=== PATIENT | female | born 1945 | race African-American/Black ===

== ENCOUNTER 2020-09-04 17:28 | Observation (INO) | payer MEDICARE, OTHER ==
[2020-09-04] MEDS ORDERED: NORMAL SALINE 1000 ML 1,000 ML IV ONE (18:35)
[2020-09-04] MEDS ORDERED: MORPHINE SULFATE 10 MG/ML INJ IV ONE (18:35)
[2020-09-04] MEDS ORDERED: ONDANSETRON HCL INJ/PF 4 MG/2 ML SDV IV ONE (18:35)
--- NOTE | 2020-09-04 18:42 | ER Document Report ---
ED Medical Screen (RME) - General Chief Complaint: Chest Pain Stated Complaint: CHEST PAIN Time Seen by Provider: 09/04/20 18:30 Primary Care Provider: ROXANA VELEZ MD [Primary Care Provider] - Follow up as needed - [facility] Notes: 09/04/20 18:39 74-year-old female presents to ED for evaluation of epigastric pain for the last several days. Notes pain worse with movement. States radiates through the back. Notes that she feels constipated. States serval days since last bowel movement. Concerned it may be Flexeril that she is taking for her shoulder. Patient notes that she does have history of hypertension. Denies shortness of breath or recent sick contacts. Patient has ready had a cholecystectomy. Physical Exam - Vital signs Vitals: Temp Pulse Resp BP Pulse Ox 98.2 F 95 20 149/87 H 95 09/04/20 17:49 09/04/20 17:49 09/04/20 17:49 09/04/20 17:49 09/04/20 17:49 General: No acute distress. Alert and oriented x3. Uncomfortable appearing. Skin: Intact without any jaundice, pallor, or erythema. Warm and dry. Heart: Regular rate and rhythm. S1,S2. No murmurs, rubs, or gallops. Lungs: Clear to ausculation bilaterally. No wheezes, rhonchi, rales. Equal chest expansion. No retractions. Abdomen: Soft, tender to epigastric region with rebound, nondistended. No hepatosplenomegaly. No masses. No CVA tenderness bilaterally. Neuro: GCS 15. Moving all extremities without discomfort. Psych: Mood and affect appropriate. Course - Vital Signs Vital signs: Temp Pulse Resp BP Pulse Ox 98.2 F 95 20 149/87 H 95 09/04/20 17:49 09/04/20 17:49 09/04/20 17:49 09/04/20 17:49 09/04/20 17:49 Doctor's Discharge - Discharge Referrals: ROXANA VELEZ MD [Primary Care Provider] - Follow up as needed
[2020-09-04 18:54] LABS: ABSOLUTE BASOPHILS # (AUTO) 0.1 10^3/uL (0.0-0.2); ABSOLUTE EOSINOPHILS # (AUTO) 0.2 10^3/uL (0.0-0.6); ABSOLUTE LYMPHOCYTES (AUTO) 1.7 10^3/uL (0.5-4.7); ABSOLUTE NEUT (AUTO) 5.6 10^3/uL (1.7-8.2); BASOPHILS % (AUTO) 0.6 % (0-2); EOSINOPHILS % (AUTO) 2.2 % (0-6); HEMATOCRIT 37.6 % (36.0-47.0); HEMOGLOBIN 12.6 g/dL (12.0-15.5); LYMPHOCYTES % (AUTO) 20.2 % (13-45); MEAN CORPUSCULAR HEMOGLOBIN 27.7 pg (27.0-33.4); MEAN CORPUSCULAR HGB CONC 33.5 g/dL (32.0-36.0); MEAN CORPUSCULAR VOLUME 83 fl (80-97); MONOCYTES % (AUTO) 11.4 % (3-13); PLATELET COUNT 348 10^3/uL (150-450); RED BLOOD COUNT 4.55 10^6/uL (3.72-5.28); RED CELL DISTRIBUTION WIDTH 14.1 % (11.5-14.0); SEGMENTED NEUTROPHILS % (AUTO) 65.6 % (42-78); TOTAL CELLS COUNTED % (AUTO) 100 %; WHITE BLOOD COUNT 8.6 10^3/uL (4.0-10.5)
--- NOTE | 2020-09-04 19:02 | RADIOLOGY REPORT (SQ) ---
EXAM DESCRIPTION: CHEST SINGLE VIEW IMAGES COMPLETED DATE/TIME: 09/04/2020 3:49 pm REASON FOR STUDY: chest pain COMPARISON: None. EXAM PARAMETERS: NUMBER OF VIEWS: One view. TECHNIQUE: Single frontal radiographic view of the chest acquired. RADIATION DOSE: NA LIMITATIONS: Lungs are hypoinflated. FINDINGS: LUNGS AND PLEURA: Mild hyperinflation. Some mild streaky opacities at the left lung base which may represent atelectasis. Possible left basilar pulmonary nodule measuring 9 mm. There is so me elevation of the right hemidiaphragm. No pleural effusion or pneumothorax. MEDIASTINUM AND HILAR STRUCTURES: No masses. Contour normal. HEART AND VASCULAR STRUCTURES: Heart normal in size. Normal vasculature. BONES: No acute findings. HARDWARE: None in the chest. OTHER: Some gas-filled bowel in the upper abdomen could represent dilated small bowel. IMPRESSION: 1. Lungs are mildly hypoinflated with probable minimal basilar atelectasis. Possible p ulmonary nodule at the left lung base. This can be evaluated with CT. 2. Some gas-filled bowel in the upper abdomen may reflect dilated small bowel. Patient is scheduled for CT abdomen pelvis. TECHNICAL DOCUMENTATION: JOB ID: [id number] 2010 [employer]- All Rights Reserved Reading location - IP/workstation name: [email or web address]
[2020-09-04 19:12] LABS: ALBUMIN 4.3 g/dL (3.5-5.0); ALKALINE PHOSPHATASE 85 U/L (38-126); ANION GAP 11 (5-19); ASPARTATE AMINO TRANSFERASE 18 U/L (14-36); BILIRUBIN,DIRECT 0.3 mg/dL (0.0-0.4); BILIRUBIN,TOTAL 0.6 mg/dL (0.2-1.3); BLOOD UREA NITROGEN 15 mg/dL (7-20); CALCIUM 9.6 mg/dL (8.4-10.2); CARBON DIOXIDE 31 mmol/L (22-30); CHLORIDE 96 mmol/L (98-107); CREATINE KINASE 82 U/L (30-135); GLUCOSE 116 mg/dL (75-110); INTERNATIONAL RATION (INR) 1.01; POTASSIUM 3.5 mmol/L (3.6-5.0); PROTHROMBIN TIME 13.5 SEC (11.4-15.4); TOTAL PROTEIN 7.4 g/dL (6.3-8.2)
[2020-09-04 19:27] LABS: CREATINE KINASE MB 0.66 ng/mL (<4.55); TROPONIN I < 0.012 ng/mL
--- NOTE | 2020-09-04 20:23 | RADIOLOGY REPORT (SQ) ---
EXAM DESCRIPTION: CT ABDOMEN PELVIS WITH IV CONTRAST COMPLETED DATE/TME: 09/04/2020 19:44 CLINICAL HISTORY: 74 years, Female, epigastric pain COMPARISON: None. TECHNIQUE: Axial images with 97 mL of Omnipaque 300. Sagittal coronal reconstruction. Images stored on PACS. All CT scanners at this facility use dose modulation, iterative reconstruction, and/or weight based dosing when appropriate to reduce radiation dose to as low as reasonably achievable (ALARA). FINDINGS: Borderline heart size. Mild dilatation of the distal esophagus. Tiny atelectasis right lower lobe. Elevation of the right hemidiaphragm. Liver, spleen, pancreas, adrenal glands, aorta and para-aortic regions are unremarkable. Mild narrowing at the origin of the celiac artery not felt to be hemodynamically significant. Kidneys without acute findings. 5 mm nonobstructing stone upper pole left kidney. Multilevel degenerative changes in the mid and lower lumbar spine. Cholecystectomy. No evidence for biliary dilatation. Moderate to prominent distention of the stomach and duodenum and majority of the small bowel. Distal small bowel not dilated. Consistent with small bowel obstruction. Nondilated colon. Normal appendix. CT of the pelvis demonstrates advanced sigmoid diverticulosis without acute diverticulitis. Urinary bladder contracted. Absent uterus. Adnexa not enlarged. No adenopathy or free fluid. IMPRESSION: 1. High-grade distal small bowel obstruction. 2. Normal appendix. Nondilated colon. Advanced sigmoid diverticulosis without obvious acute diverticulitis. 3. Multilevel degenerative changes in the lumbar spine. 4. Previous cholecystectomy and hysterectomy.
--- NOTE | 2020-09-04 21:53 | EKG REPORT ---
SEVERITY:- ABNORMAL ECG - SINUS RHYTHM LEFT VENTRICULAR HYPERTROPHY PROBABLE INFERIOR INFARCT, AGE INDETERMINATE : Confirmed by: Marya Jimenez MD 04-Sep-2020 21:52:21
--- NOTE | 2020-09-05 01:41 | ER Document Report ---
ED General - General Chief Complaint: Epigastric Pain Stated Complaint: CHEST PAIN Time Seen by Provider: 09/04/20 18:30 Notes: Patient is a 74-year-old female with a history of hypertension, who presents emergency department with chest pain and not having a bowel movement for about 8 days. Patient reports that she has been vomiting brown vomitus. States that about 3 days ago, she went to urgent care where she was given a suppository, whi ch only helped her have a very small bowel movement. Prior to that, 5 days prior she had her last bowel movement. - Related Data Allergies/Adverse Reactions: latex Allergy (Verified 09/04/20 18:41) harinder Allergy (Verified 09/05/20 16:02) Sulfa (Sulfonamide Antibiotics) Allergy (Verified 09/04/20 18:41) Penicillins Adverse Reaction (Verified 09/04/20 18:41) Past Medical History - General Information source: Patient - Social History Smoking Status: Never Smoker Chew tobacco use (# tins/day): No Frequency of alcohol use: Occasional Drug Abuse: None Family History: Reviewed & Not Pertinent - Past Medical History Cardiac Medical History: Reports: Hx Hypertension Past Surgical History: Reports: Hx Cholecystectomy, Hx Hysterectomy, Hx Orthopedic Surgery - bilateral knee replacement Review of Systems - Review of Systems Notes: REVIEW OF SYSTEMS: CONSTITUTIONAL : Denies recent illness. Denies recent unintentional weight loss. Denies fever, chills, or sweats. EENT: Denies eye, ear, throat, or mouth pain, discharge, or symptoms. Denies nasal or sinus congestion. CARDIOVASCULAR: See HPI. RESPIRATORY: Denies shortness of breath, cough, congestion, difficulty breathing, or wheezing. GASTROINTESTINAL: See HPI. GENITOURINARY: Denies difficulty urinating, burning, blood in urine, urgency or frequency. MUSCULOSKELETAL: Denies neck and back pain. Denies joint pain or swelling. SKIN: Denies rash, itchiness, or lesions HEMATOLOGIC : Denies easy bruising or bleeding. LYMPHATIC: Denies swollen, painful, enlarged glands. NEUROLOGICAL: Denies no numbness or tingling denies weakness. Denies headache. Denies altered mental status. Denies alteration in speech. PSYCHIATRIC: Denies stress, anxiety, alteration in sleep patterns, or depression. All other systems reviewed and negative. Physical Exam - Vital signs Vitals: Temp Pulse Resp BP Pulse Ox 98.2 F 95 20 149/87 H 95 09/04/20 17:49 09/04/20 17:49 09/04/20 17:49 09/04/20 17:49 09/04/20 17:49 - Notes Notes: PHYSICAL EXAMINATION: GENERAL: Appears well, healthy, well-nourished, no acute distress. HEAD: Normocephalic, atraumatic. EYES: PERRL, conjunctiva normal, all extraocular movements intact, sclera nonicteric ENT: Moist mucous membranes. NECK: Supple, no noticeable swelling, redness, rash. Normal range of motion. LUNGS: Equal breath sounds bilaterally and clear to auscultation. No wheezes rales or rhonchi. CARDIOVASCULAR: S1-S2, regular rate, regular rhythm. Radial pulses 2+, normal. ABDOMEN: Normoactive bowel sounds. Soft, tender generalized abdomen. EXTREMITIES: Normal strength and range of motion, no pitting or edema. No cyanosis. NEUROLOGICAL: Moves all extremities upon command. Strength 5/5 in all extremities. PSYCH: Normal mood, normal affect. SKIN: Warm, dry. No rash, lesions, ulcerations noted. Normal skin turgor. Course - Re-evaluation Re-evalutation: 09/05/20 01:57 Hematology is unremarkable. Coagulation studies are also unremarkable. Potassium was 3.5 and creatinine is 1.54. I have no other labs for comparison. Troponin is negative x2. Lipase is normal. LFTs are also normal. CT of the abdomen pelvis with IV contrast ordered in triage shows stomach and duodenal distention. Patient also has a high-grade distal small bowel obstruction. Appendix is normal. No signs of diverticulitis, but the patient does have some diverticulosis. Patient also has a 5 mm nonobstructing renal stone in the left pole of the kidney. Attempted to call Dr. Paredes, the surgicalist reconciliation clerk for consultation. 09/05/20 02:40 I was able to speak with Dr. Paredes. NG tube will be placed. 09/05/20 02:[address] Gtz, the hopitalist. Patient will be admitted under the hospitalist service. - Vital Signs Vital signs: Temp Pulse Resp BP Pulse Ox 97.8 F 82 19 146/92 H 100 09/06/20 08:28 09/06/20 08:28 09/06/20 08:28 09/06/20 08:28 09/06/20 08:28 - Laboratory Results Result Diagrams: 09/06/20 05:26 09/06/20 05:26 Laboratory Results Interpreted: 09/04/20 09/04/20 18:45 18:45 RDW 14.1 H Potassium 3.5 L Chloride 96 L Carbon Dioxide 31 H Creatinine 1.54 H Est GFR ( Amer) 40 L Est GFR (MDRD) Non-Af 33 L Glucose 116 H Critical Laboratory Results Reviewed: No Critical Results - Radiology Results Critical Radiology Results Reviewed: No Critical Results Discharge - Discharge Clinical Impression: Bowel obstruction Qualifiers: Intestinal obstruction type: unspecified Intestinal obstruction extent: unspecified extent Qualified Code(s): K56.609 - Unspecified intestinal ob struction, unspecified as to partial versus complete obstruction Abdominal pain Qualifiers: Abdominal location: unspecified location Qualified Code(s): R10.9 - Unspecified abdominal pain Disposition: ADMITTED INPATIENT Admitting Provider: [facility] Unit Admitted: Medical Floor
[2020-09-05] MEDS ORDERED: ONDANSETRON HCL INJ/PF 4 MG/2 ML SDV IV ONE (01:45)
[2020-09-05] MEDS ORDERED: MORPHINE SULFATE 10 MG/ML INJ IV ONE (02:00)
--- NOTE | 2020-09-05 02:59 | PDOC CONSULTATION ---
Consultation Consult Date: 09/05/20 Attending physician:: CINDY NESS Provider Consulted: KHUSHBU MARTI Consult reason:: sbo History of Present Illness Admission Date/PCP: ROXANA VELEZ MD History of Present Illness: WILIAM SANDY is a 74 year old female with a history of hypertension, who presents emergency department with chest pain and not having a bowel movement for about 8 days. Patient reports that she has been vomiting brown vomitus. States that about 3 days ago, she went to urgent care where she was given a suppository, which only helped her have a very small bowel movement. Prior to that, 5 days prior she had her last bowel movement. Past Medical History Cardiac Medical History: Reports: Hypertension Past Surgical History Past Surgical History: Reports: Cholecystectomy, Hysterectomy, Orthopedic Surgery - bilateral knee replacement Social History Smoking Status: Never Smoker Electronic Cigarette use?: No Family History Parental Family History Reviewed: No Children Family History Reviewed: NA Sibling(s) Family History Reviewed.: NA Medication/Allergy Allergies/Adverse Reactions: latex Allergy (Verified 09/04/20 18:41) Sulfa (Sulfonamide Antibiotics) Allergy (Verified 09/04/20 18:41) Penicillins Adverse Reaction (Verified 09/04/20 18:41) Review of Systems Constitutional: PRESENT: fatigue, weakness Eyes: ABSENT: as per HPI, visual disturbances, other Ears: ABSENT: as per HPI, hearing changes, other Nose, Mouth, and Throat: ABSENT: as per HPI, headache(s), mouth pain, sore throat, vertigo, other Breasts: ABSENT: as per HPI, other Cardiovascular: ABSENT: as per HPI, chest pain, dyspnea on exertion, edema, orthropnea, palpitations, other Respiratory: ABSENT: as per HPI, cough, dyspnea, hemoptysis, sputum, other Gastrointestinal: PRESENT: bloating, constipation, nausea, vomiting Genitourinary: ABSENT: as per HPI, difficulty urinating, dysuria, hematuria, nocturia, other Musculoskeletal: ABSENT: as per HPI, back pain, deformity, joint swelling, muscle weakness, other Integumentary: ABSENT: as per HPI, diaphoresis, erythema, lesions, pruritus, rash, wounds, other Neurological: ABSENT: as per HPI, abnormal gait, abnormal movements, abnormal speech, confusion, convulsions, dizziness, focal weakness, frequent falls, lack of coordination, memory loss, numbness, paresthesias, restless legs, syncope, tingling, tremor(s), vertigo, weakness, other Psychiatric: ABSENT: as per HPI, anxiety, depression, hallucinations, homidical ideation, suicidal ideation, other Endocrine: ABSENT: as per HPI, cold intolerance, flushing, heat intolerance, menstrual abnormalities, polydipsia, polyphagia, polyuria, other Hematologic/Lymphatic: ABSENT: as per HPI, easy bleeding, easy bruising, lymphadenopathy, other Allergic/Immunologic: ABSENT: as per HPI, seasonal rhinorrhea, other Physical Exam Vital Signs: Temp Pulse Resp BP Pulse Ox 98.8 F 111 H 15 132/84 H 96 09/05/20 02:13 09/04/20 22:58 09/05/20 02:13 09/05/20 02:13 09/05/20 02:13 Intake & Output 09/03/20 09/04/20 09/05/20 06:59 06:59 06:59 Weight 95.9 kg General appearance: PRESENT: mild distress Head exam: PRESENT: normocephalic Eye exam: PRESENT: EOMI Ear exam: PRESENT: normal external ear exam Mouth exam: PRESENT: moist Teeth exam: PRESENT: poor dentation Neck exam: PRESENT: full ROM Respiratory exam: PRESENT: clear to auscultation marlen Cardiovascular exam: PRESENT: RRR Pulses: PRESENT: normal radial pulses, normal femoral pulses Breast: PRESENT: Normal GI/Abdominal exam: PRESENT: diminished bowel sounds, distended Rectal exam: PRESENT: deferred Extremities exam: PRESENT: full ROM Musculoskeletal exam: PRESENT: full ROM Neurological exam: PRESENT: alert, awake, oriented to person, oriented to place Psychiatric exam: PRESENT: appropriate affect Skin exam: PRESENT: dry Results Laboratory Results: 09/04/20 18:45 09/04/20 18:45 09/04/20 09/04/20 18:45 18:45 WBC 8.6 RBC 4.55 Hgb 12.6 Hct 37.6 MCV 83 MCH 27.7 MCHC 33.5 RDW 14.1 H Plt Count 348 Seg Neutrophils % 65.6 Sodium 137.9 Potassium 3.5 L Chloride 96 L Carbon Dioxide 31 H Anion Gap 11 BUN 15 Creatinine 1.54 H Est GFR ( Amer) 40 L Glucose 116 H Calcium 9.6 Total Bilirubin 0.6 AST 18 Alkaline Phosphatase 85 Total Protein 7.4 Albumin 4.3 Lipase 85.7 09/04/20 09/04/20 09/04/20 18:45 18:45 22:57 Creatine Kinase 82 CK-MB (CK-2) 0.66 Troponin I < 0.012 < 0.012 Impressions: Abdomen/Pelvis CT 09/04/20 18:35 IMPRESSION: 1. High-grade distal small bowel obstruction. 2. Normal appendix. Nondilated colon. Advanced sigmoid diverticulosis without obvious acute diverticulitis. 3. Multilevel degenerative changes in the lumbar spine. 4. Previous cholecystectomy and hysterectomy. Chest X-Ray 09/04/20 18:37 IMPRESSION: 1. Lungs are mildly hypoinflated with probable minimal basilar atelectasis. Possible pulmonary nodule at the left lung base. This can be evaluated with CT. 2. Some gas-filled bowel in the upper abdomen may reflect dilated small bowel. Patient is scheduled for CT abdomen pelvis. Assessment & Plan - Diagnosis (1) Bowel obstruction Qualifiers: Intestinal obstruction type: unspecified Intestinal obstruction extent: unspecified extent Qualified Code(s): K56.609 - Unspecified intestinal obstruction, unspecified as to partial versus complete obstruction Is this a current diagnosis for this admission?: Yes - Plan Summary Plan Summary: impression 74y/o presents iwth c/o constipation, vomiting abdominal distension ct concerening for sbo plan ng suction iv hydration. observation surgery will follow
[2020-09-05] MEDS ORDERED: DEXTROSE 50%-WATER 25 GM/50 ML DISP.SYRIN IV PRN ×2 (03:42)
[2020-09-05] MEDS ORDERED: DEXTROSE 40% GEL 15 GM TUBE PO PRN ×2 (03:42)
[2020-09-05] MEDS ORDERED: GLUCAGON,HUMAN RECOMB 1 MG INJ SUBCUT PRN (03:42)
[2020-09-05] MEDS: ONDANSETRON HCL INJ/PF 4 MG/2 ML SDV IV PRN (04:04)
--- NOTE | 2020-09-05 04:15 | PDOC H&P ---
History of Present Illness Admission Date/PCP: 09/05/20 02:58 ROXANA VELEZ MD Patient complains of: Abdominal pain History of Present Illness: WILIAM SANDY is a 74 year old female with a history of hypertension presents to the ED reporting that she has not been able to have a bowel movement including both gas and stool for the past 8 days. This is associated with a cramping generalized cramping abdominal pain with associated nausea and nonbloody vomiting of ingested matter. She had visited urgent care clinic 4 days back and was given enema after which she was able to pass scanty amount of stool 1 time but continues to have failure to pass gas and since then. She has a remote history of cholecystectomy and hysterectomy but denies any recent abdominal surgery. She has no fever, chills, cough, palpitation, dizziness. On presentation to the ED patient had reported associated typical chest pain and she had 2 sets of cardiac enzymes which were negative and EKG obtained showed no significant ST-T wave changes. She has been evaluated by surgical team at the ED and NG tube has already been inserted. Patient is now being admitted to medical service for continued management of possible small bowel obstruction. Past Medical History Cardiac Medical History: Reports: Hypertension Past Surgical History Past Surgical History: Reports: Cholecystectomy, Hysterectomy, Orthopedic Surgery - bilateral knee replacement Social History Information Source: Patient Lives with: Family Smoking Status: Never Smoker Electronic Cigarette use?: No Frequency of Alcohol Use: Occasional Hx Recreational Drug Use: No Drugs: None - Advance Directive Resuscitation Status: Full Code Family History Family History: Reviewed & Not Pertinent Parental Family History Reviewed: Yes Children Family History Reviewed: Yes Sibling(s) Family History Reviewed.: Yes Medication/Allergy Home Medications: Doxazosin Mesylate [Cardura 4 mg Tablet] 4 mg PO DAILY 09/05/20 Furosemide [Lasix 40 mg Tablet] 40 mg PO DAILY 09/05/20 Metoprolol Succinate [Toprol Xl 50 mg Tab.sr] 50 mg PO BID 09/05/20 Potassium Chloride [Klor-Con 8] 8 meq PO DAILY 09/05/20 Allergies/Adverse Reactions: latex Allergy (Verified 09/04/20 18:41) Sulfa (Sulfonamide Antibiotics) Allergy (Verified 09/04/20 18:41) Penicillins Adverse Reaction (Verified 09/04/20 18:41) Review of Systems Constitutional: ABSENT: chills, fever(s), headache(s), weight gain, weight loss Eyes: ABSENT: visual disturbances Ears: ABSENT: hearing changes Nose, Mouth, and Throat: ABSENT: mouth pain, sore throat Cardiovascular: ABSENT: dyspnea on exertion, edema, orthropnea, palpitations Respiratory: ABSENT: cough, hemoptysis Gastrointestinal: PRESENT: as per HPI Genitourinary: ABSENT: dysuria, hematuria Musculoskeletal: ABSENT: joint swelling Integumentary: ABSENT: rash, wounds Neurological: ABSENT: abnormal gait, abnormal speech, confusion, dizziness, focal weakness, syncope Psychiatric: ABSENT: anxiety, depression, homidical ideation, suicidal ideation Endocrine: ABSENT: cold intolerance, heat intolerance, polydipsia, polyuria Hematologic/Lymphatic: ABSENT: easy bleeding, easy bruising Physical Exam Vital Signs: Temp Pulse Resp BP Pulse Ox 98.8 F 111 H 15 132/84 H 96 09/05/20 02:13 09/04/20 22:58 09/05/20 02:13 09/05/20 02:13 09/05/20 02:13 Intake & Output 09/03/20 09/04/20 09/05/20 06:59 06:59 06:59 Intake Total 1000 Output Total 450 Balance 550 Weight 95.9 kg Additional comments: GENERAL APPEARANCE: Alert and oriented x3, in no acute distress HEENT: Normocephalic and atraumatic. No scleral icterus. Moist oral mucosa NECK: Supple. No lymphadenopathy or tenderness. No carotid bruit. No JVD CHEST: Symmetric. Nontender to palpation. LUNGS: Clear with good air entry bilaterally. No wheezing or crackles HEART: Regular rate and rhythm with normal S1 and S2. No murmurs, gallops, or rubs. ABDOMEN: soft, active bowel sounds, mild tenderness to palpation on the left lower quadrant area but no rebound, guarding or rigidity. No organomegaly detected. EXTREMITIES: No cyanosis, clubbing, or edema. MUSCULOSKELETAL: No deformity, atrophy or swelling noted PSYCHIATRIC: Recent and remote memory is intact. Appropriate mood and affect. SKIN: Warm, dry, and well perfused. No lesions or rashes are noted. NEUROLOGIC: No focal sensory or motor deficits are noted. Results Laboratory Results: 09/04/20 18:45 09/04/20 18:45 09/04/20 09/04/20 18:45 18:45 WBC 8.6 RBC 4.55 Hgb 12.6 Hct 37.6 MCV 83 MCH 27.7 MCHC 33.5 RDW 14.1 H Plt Count 348 Seg Neutrophils % 65.6 Sodium 137.9 Potassium 3.5 L Chloride 96 L Carbon Dioxide 31 H Anion Gap 11 BUN 15 Creatinine 1.54 H Est GFR ( Amer) 40 L Glucose 116 H Calcium 9.6 Total Bilirubin 0.6 AST 18 Alkaline Phosphatase 85 Total Protein 7.4 Albumin 4.3 Lipase 85.7 09/04/20 09/04/20 09/04/20 18:45 18:45 22:57 Creatine Kinase 82 CK-MB (CK-2) 0.66 Troponin I < 0.012 < 0.012 Impressions: Abdomen/Pelvis CT 09/04/20 18:35 IMPRESSION: 1. High-grade distal small bowel obstruction. 2. Normal appendix. Nondilated colon. Advanced sigmoid diverticulosis without obvious acute diverticulitis. 3. Multilevel degenerative changes in the lumbar spine. 4. Previous cholecystectomy and hysterectomy. Chest X-Ray 09/04/20 18:37 IMPRESSION: 1. Lungs are mildly hypoinflated with probable minimal basilar atelectasis. Possible pulmonary nodule at the left lung base. This can be evaluated with CT. 2. Some gas-filled bowel in the upper abdomen may reflect dilated small bowel. Patient is scheduled for CT abdomen pelvis. Assessment and Plan - Diagnosis (1) Small bowel obstruction Is this a current diagnosis for this admission?: Yes Plan: Presents with a few days duration of failure to have a bowel movement CT abdomen: High-grade distal small bowel obstruction and sigmoid diverticulosis with no sign of diverticulitis Has no signs of peritonitis NG tube has been inserted Patient will be kept n.p.o. Continue IV hydration Surgery on board and recommendations appreciated (2) Acute kidney injury Is this a current diagnosis for this admission?: Yes Plan: BUN/creatinine on this encounter was 15.54 Has no baseline to compare it with, could be CKD Currently patient is being hydrated Monitor kidney indicis Avoid nephrotoxic's and renally dose medications (3) Hypokalemia Is this a current diagnosis for this admission?: Yes Plan: Potassium was borderline low at 3.5 Likely due to GI loss from vomiting Replete with potassium chloride IV Continue monitoring electrolytes closely and replete as necessary (4) Sigmoid diverticulosis Is this a current diagnosis for this admission?: Yes Plan: CT abdomen showed sigmoid diverticulosis without sign of diverticulitis Recommend high-fiber diet once small bowel obstruction resolves (5) Hypertension Is this a current diagnosis for this admission?: Yes Plan: Blood pressure is within acceptable range at this point Hold antihypertensive for now due to patient being n.p.o. Closely monitor vital signs (6) Obesity (BMI 30-39.9) Is this a current diagnosis for this admission?: Yes Plan: Encourage lifestyle modification including exercise and dietary habits change - Time Time Spent with patient: 35 or more minutes Total Critical Time (Minutes): 45 Medications reviewed and adjusted accordingly: Yes Anticipated Discharge Disposition: Home, Self Care Anticipated Discharge Timeframe: within 72 hours - Inpatient Certification Based on my medical assessment, after consideration of the patient's comorbidities, presenting symptoms, or acuity I expect that the services needed warrant INPATIENT care.: Yes I certify that my determination is in accordance with my understanding of Medicare's requirements for reasonable and necessary INPATIENT services [42 CFR 412.3e].: Yes Medical Necessity: Significant Comorbidiites Make Outpatient Treatment Too Risky, Need Close Monitoring Due to Risk of Patient Decompensation, Need For IV Fluids, Need for Pain Control, Risk of Complication if Not Cared For in Hospital Post Hospital Care: D/C or Transfer Summary
--- NOTE | 2020-09-05 04:17 | RADIOLOGY REPORT (SQ) ---
Abdomen x-ray single view on 09/05/2020 3:27 AM CLINICAL INDICATION: NG tube placement COMPARISON: CT from 09/04/2020 FINDINGS: NG tube extends into the body of the stomach in good position. There are dilated loops of small bowel in the midabdomen consistent with known small bowel obstruction. Degenerative changes are noted in the spine. IMPRESSION: NG tube in good position in the stomach.
[2020-09-05] MEDS: HEPARIN SOD (PORCINE) 5,000 UNIT/ML 1 ML VIAL SUBCUT SCH ×3 (06:39→21:45)
--- NOTE | 2020-09-05 08:56 | PDOC PROGRESS REPORT ---
Subjective Date:: 09/05/20 Subjective:: 74 year old female with a history of hypertension, who presents emergency depar tment with chest pain and not having a bowel movement for about 8 days. Patient reports that she has been vomiting brown vomitus. States that about 3 days ago, she went to urgent care where she was given a suppository, which only helped her have a very small bowel movement. Prior to that, 5 days prior she had her last bowel movement. 09/05/[id number]-sdmy-old female with history of hypertension, history of cholecystectomy, hysterectomy admitted with nausea and vomitings and vomiting brown-colored vomitus. Surgical consult was done during the hospital stay recommendation is IV fluids, NG tube, pain management. KUB done this morning indicated of bowel obstruction and NG tube in the stomach. Reason For Visit: SMALL BOWEL OBSTRUCTION,ACUTE KIDNEY INJURY Physical Exam Vital Signs: Temp Pulse Resp BP Pulse Ox 98.8 F 111 H 17 117/76 97 09/05/20 02:13 09/04/20 22:58 09/05/20 08:01 09/05/20 08:01 09/05/20 03:01 Intake & Output 09/04/20 09/05/20 09/06/20 06:59 06:59 06:59 Intake Total 1000 Output Total 450 Balance 550 Weight 95.9 kg General appearance: PRESENT: no acute distress, cooperative Head exam: PRESENT: atraumatic Eye exam: PRESENT: PERRLA Mouth exam: PRESENT: moist, tongue midline Teeth exam: PRESENT: poor dentation Neck exam: ABSENT: carotid bruit, JVD, lymphadenopathy, thyromegaly Respiratory exam: PRESENT: decreased breath sounds Cardiovascular exam: PRESENT: RRR. ABSENT: diastolic murmur, rubs, systolic murmur GI/Abdominal exam: PRESENT: normal bowel sounds, soft. ABSENT: distended, guarding, mass, organolmegaly, rebound, tenderness Rectal exam: PRESENT: deferred Extremities exam: PRESENT: full ROM. ABSENT: calf tenderness, clubbing, pedal edema Neurological exam: PRESENT: alert, awake, oriented to person, oriented to place, oriented to time, oriented to situation, CN II-XII grossly intact. ABSENT: motor sensory deficit Psychiatric exam: PRESENT: appropriate affect, normal mood. ABSENT: homicidal ideation, suicidal ideation Results Laboratory Results: 09/04/20 18:45 09/04/20 18:45 09/04/20 09/04/20 18:45 18:45 WBC 8.6 RBC 4.55 Hgb 12.6 Hct 37.6 MCV 83 MCH 27.7 MCHC 33.5 RDW 14.1 H Plt Count 348 Seg Neutrophils % 65.6 Sodium 137.9 Potassium 3.5 L Chloride 96 L Carbon Dioxide 31 H Anion Gap 11 BUN 15 Creatinine 1.54 H Est GFR ( Amer) 40 L Glucose 116 H Calcium 9.6 Total Bilirubin 0.6 AST 18 Alkaline Phosphatase 85 Total Protein 7.4 Albumin 4.3 Lipase 85.7 09/04/20 09/04/20 09/04/20 18:45 18:45 22:57 Creatine Kinase 82 CK-MB (CK-2) 0.66 Troponin I < 0.012 < 0.012 Impressions: Abdomen/Pelvis CT 09/04/20 18:35 IMPRESSION: 1. High-grade distal small bowel obstruction. 2. Normal appendix. Nondilated colon. Advanced sigmoid diverticulosis without obvious acute diverticulitis. 3. Multilevel degenerative changes in the lumbar spine. 4. Previous cholecystectomy and hysterectomy. Chest X-Ray 09/04/20 18:37 IMPRESSION: 1. Lungs are mildly hypoinflated with probable minimal basilar atelectasis. Possible pulmonary nodule at the left lung base. This can be evaluated with CT. 2. Some gas-filled bowel in the upper abdomen may reflect dilated small bowel. Patient is scheduled for CT abdomen pelvis. KUB X-Ray 09/05/20 03:18 IMPRESSION: NG tube in good position in the stomach. Assessment and Plan - Diagnosis (1) Bowel obstruction Qualifiers: Intestinal obstruction type: unspecified Intestinal obstruction extent: unspecified extent Qualified Code(s): K56.609 - Unspecified intestinal obstruction, unspecified as to partial versus complete obstruction Is this a current diagnosis for this admission?: Yes Plan: 09/05/2020-patient admitted for small bowel obstruction. Presently n.p.o., with NG tube, on IV fluids. Denies any pain. Surgical consult was requested. Plan to do the daily KUBs. To provide pain management. Patient has history of cholecystectomy and hysterectomy before. (2) Acute kidney injury Is this a current diagnosis for this admission?: Yes Plan: 09/05/2020-serum creatinine is 1.54. We do not have any baseline creatinine. Patient possibly came in with DARYL secondary to nausea and vomitings. To repeat the labs today. (3) Obesity (BMI 30-39.9) Is this a current diagnosis for this admission?: No Plan: 09/05/2020-patient BMI is more than 38 diet exercise weight loss lifestyle modifications discussed with the patient. (4) Hypokalemia Is this a current diagnosis for this admission?: Yes Plan: 09/05/2020-came in with a low potassium, serum potassium today 3.5. To give IV potassium supplementations. (5) Hypertension Is this a current diagnosis for this admission?: No Plan: 09/05/2020-patient has history of chronic essential hypertension blood pressure today is 112/48. Stable. Plan is to closely monitor blood pressures at this time. - Time Anticipated Discharge Disposition: Home, Self Care Anticipated Discharge Timeframe: within 72 hours
--- NOTE | 2020-09-05 09:21 | RADIOLOGY REPORT (SQ) ---
EXAM DESCRIPTION: ABDOMEN 2 VIEWS IMAGES COMPLETED DATE/TIME: 09/05/2020 9:05 am REASON FOR STUDY: f/u sbo D50.8 OTHER IRON DEFICIENCY ANEMIAS R19.4 CHANGE IN BOWEL HABIT COMPARISON: Earlier the same day. NUMBER OF VIEWS: Two views. TECHNIQUE: Supine and erect/decubitus radiographic images of the abdomen acquired. LIMITATIONS: None. FINDINGS: Unchanged position of nasogastric tube. Unchanged mildly dilated loops of small bowel wit h gas fluid levels. No free air. Gas within none dilated descending colon. Contrast in the urinary bladder. IMPRESSION: Ileus or partial small bowel obstruction. No significant change. TECHNICAL DOCUMENTATION: JOB ID: [id number] 2010 [employer]- All Rights Reserved Reading location - IP/workstation name: [email or web address]
[2020-09-05] MEDS ORDERED: POTASSI CL 20 MEQ/50 ML RIDER 20 MEQ/50 ML RTUPB IV ONE (09:45)
[2020-09-05 09:48] LABS: ABSOLUTE EOSINOPHILS # (AUTO) 0.1 10^3/uL (0.0-0.6); ABSOLUTE MONOCYTES (AUTO) 1.2 10^3/uL (0.1-1.4); ABSOLUTE NEUT (AUTO) 6.6 10^3/uL (1.7-8.2); BASOPHILS % (AUTO) 0.4 % (0-2); HEMATOCRIT 33.8 % (36.0-47.0); HEMOGLOBIN 11.4 g/dL (12.0-15.5); LYMPHOCYTES % (AUTO) 19.8 % (13-45); MEAN CORPUSCULAR HEMOGLOBIN 27.9 pg (27.0-33.4); MEAN CORPUSCULAR HGB CONC 33.8 g/dL (32.0-36.0); MEAN CORPUSCULAR VOLUME 83 fl (80-97); MONOCYTES % (AUTO) 12.2 % (3-13); PLATELET COUNT 304 10^3/uL (150-450); RED BLOOD COUNT 4.09 10^6/uL (3.72-5.28); RED CELL DISTRIBUTION WIDTH 14.2 % (11.5-14.0); SEGMENTED NEUTROPHILS % (AUTO) 66.6 % (42-78); TOTAL CELLS COUNTED % (AUTO) 100 %; WHITE BLOOD COUNT 9.9 10^3/uL (4.0-10.5)
[2020-09-05 10:06] LABS: ALBUMIN 3.9 g/dL (3.5-5.0); ALKALINE PHOSPHATASE 72 U/L (38-126); ANION GAP 13 (5-19); ASPARTATE AMINO TRANSFERASE 17 U/L (14-36); BILIRUBIN,DIRECT 0.3 mg/dL (0.0-0.4); BILIRUBIN,TOTAL 0.6 mg/dL (0.2-1.3); BLOOD UREA NITROGEN 17 mg/dL (7-20); CALCIUM 9.3 mg/dL (8.4-10.2); CARBON DIOXIDE 24 mmol/L (22-30); CHLORIDE 100 mmol/L (98-107); GLUCOSE 95 mg/dL (75-110); POTASSIUM 3.5 mmol/L (3.6-5.0); TOTAL PROTEIN 6.8 g/dL (6.3-8.2)
[2020-09-05] MEDS: FAMOTIDINE INJ/PF 20 MG/2 ML SDV IV SCH ×2 (10:18→21:46)
[2020-09-05] MEDS: RINGERS SOLUTION,LACTATED 1,000 ML IV PRN ×2 (10:18→22:41)
--- NOTE | 2020-09-05 12:16 | PDOC PROGRESS REPORT ---
Subjective Date:: 09/05/20 Subjective:: Had a small bowel movement just now and feels better although she still feels bl oated. Abdominal pain has improved. Reason For Visit: SMALL BOWEL OBSTRUCTION,ACUTE KIDNEY INJURY Physical Exam Vital Signs: Temp Pulse Resp BP Pulse Ox 98.2 F 91 16 127/67 H 100 09/05/20 11:39 09/05/20 11:39 09/05/20 11:39 09/05/20 11:39 09/05/20 11:39 Intake & Output 09/04/20 09/05/20 09/06/20 06:59 06:59 06:59 Intake Total 1000 Output Total 450 Balance 550 Weight 95.9 kg General appearance: PRESENT: no acute distress, cooperative Respiratory exam: PRESENT: clear to auscultation marlen Cardiovascular exam: PRESENT: RRR GI/Abdominal exam: PRESENT: other - Soft, mildly distended, nontender to palpation Results Laboratory Results: 09/05/20 09:36 09/05/20 09:36 09/04/20 09/04/20 09/05/20 18:45 18:45 09:36 WBC 8.6 9.9 RBC 4.55 4.09 Hgb 12.6 11.4 L Hct 37.6 33.8 L MCV 83 83 MCH 27.7 27.9 MCHC 33.5 33.8 RDW 14.1 H 14.2 H Plt Count 348 304 Seg Neutrophils % 65.6 66.6 Sodium 137.9 Potassium 3.5 L Chloride 96 L Carbon Dioxide 31 H Anion Gap 11 BUN 15 Creatinine 1.54 H Est GFR ( Amer) 40 L Glucose 116 H Calcium 9.6 Magnesium Total Bilirubin 0.6 AST 18 Alkaline Phosphatase 85 Total Protein 7.4 Albumin 4.3 Lipase 85.7 09/05/20 09:36 WBC RBC Hgb Hct MCV MCH MCHC RDW Plt Count Seg Neutrophils % Sodium 137.3 Potassium 3.5 L Chloride 100 Carbon Dioxide 24 Anion Gap 13 BUN 17 Creatinine 1.37 H Est GFR ( Amer) 46 L Glucose 95 Calcium 9.3 Magnesium 2.0 Total Bilirubin 0.6 AST 17 Alkaline Phosphatase 72 Total Protein 6.8 Albumin 3.9 Lipase 09/04/20 09/04/20 09/04/20 18:45 18:45 22:57 Creatine Kinase 82 CK-MB (CK-2) 0.66 Troponin I < 0.012 < 0.012 Impressions: Abdomen/Pelvis CT 09/04/20 18:35 IMPRESSION: 1. High-grade distal small bowel obstruction. 2. Normal appendix. Nondilated colon. Advanced sigmoid diverticulosis without obvious acute diverticulitis. 3. Multilevel degenerative changes in the lumbar spine. 4. Previous cholecystectomy and hysterectomy. Chest X-Ray 09/04/20 18:37 IMPRESSION: 1. Lungs are mildly hypoinflated with probable minimal basilar atelectasis. Possible pulmonary nodule at the left lung base. This can be evaluated with CT. 2. Some gas-filled bowel in the upper abdomen may reflect dilated small bowel. Patient is scheduled for CT abdomen pelvis. Abdomen X-Ray 09/05/20 00:00 IMPRESSION: Ileus or partial small bowel obstruction. No significant change. KUB X-Ray 09/05/20 03:18 IMPRESSION: NG tube in good position in the stomach. Assessment & Plan - Diagnosis (1) Bowel obstruction Qualifiers: Intestinal obstruction type: unspecified Intestinal obstruction extent: unspecified extent Qualified Code(s): K56.609 - Unspecified intestinal obstruction, unspecified as to partial versus complete obstruction Is this a current diagnosis for this admission?: Yes Plan: May be improving as evidenced by her bowel movement today. But still has abdominal distention. I do see air in the colon on her abdominal x-rays today. In light of the improvements, and no alarming signs for bowel compromise, will continue conservative management. Repeat x-rays in the morning. - Time Anticipated Discharge Disposition: Home, Self Care Anticipated Discharge Timeframe: within 72 hours
[2020-09-05 21:08] LABS: APPEARANCE,URINE CLOUDY; BILIRUBIN,URINE NEGATIVE (NEGATIVE); GLUCOSE, URINE NEGATIVE (NEGATIVE); KETONES,URINE 20 mg/dL (NEGATIVE); LEUKOCYTE ESTERASE,URINE LARGE (NEGATIVE); NITRITE,URINE NEGATIVE (NEGATIVE); PROTEIN,URINE 30 mg/dL (NEGATIVE); URINE SPECIFIC GRAVITY 1.043; UROBILINOGEN,URINE NEGATIVE mg/dL (<2.0)
[2020-09-05 21:10] LABS: COLOR,URINE YELLOW
[2020-09-05] MEDS: METOPROLOL SUCCINATE 50 MG TAB.SR.24H PO SCH (21:46)
[2020-09-06] MEDS: HEPARIN SOD (PORCINE) 5,000 UNIT/ML 1 ML VIAL SUBCUT SCH ×3 (05:13→22:14)
[2020-09-06 06:09] LABS: ABSOLUTE EOSINOPHILS # (AUTO) 0.2 10^3/uL (0.0-0.6); ABSOLUTE LYMPHOCYTES (AUTO) 1.8 10^3/uL (0.5-4.7); ABSOLUTE MONOCYTES (AUTO) 0.9 10^3/uL (0.1-1.4); ABSOLUTE NEUT (AUTO) 4.1 10^3/uL (1.7-8.2); BASOPHILS % (AUTO) 0.4 % (0-2); EOSINOPHILS % (AUTO) 2.4 % (0-6); HEMATOCRIT 29.2 % (36.0-47.0); LYMPHOCYTES % (AUTO) 25.5 % (13-45); MEAN CORPUSCULAR HEMOGLOBIN 28.3 pg (27.0-33.4); MEAN CORPUSCULAR HGB CONC 34.3 g/dL (32.0-36.0); MEAN CORPUSCULAR VOLUME 82 fl (80-97); MONOCYTES % (AUTO) 13.3 % (3-13); PLATELET COUNT 282 10^3/uL (150-450); RED BLOOD COUNT 3.54 10^6/uL (3.72-5.28); RED CELL DISTRIBUTION WIDTH 13.8 % (11.5-14.0); SEGMENTED NEUTROPHILS % (AUTO) 58.4 % (42-78); TOTAL CELLS COUNTED % (AUTO) 100 %
[2020-09-06 06:28] LABS: BLOOD UREA NITROGEN 12 mg/dL (7-20); CALCIUM 8.5 mg/dL (8.4-10.2); CARBON DIOXIDE 26 mmol/L (22-30); GLUCOSE 82 mg/dL (75-110); POTASSIUM 3.6 mmol/L (3.6-5.0)
[2020-09-06 06:42] LABS: ANION GAP 7 (5-19); CHLORIDE 102 mmol/L (98-107)
[2020-09-06] MEDS: FAMOTIDINE INJ/PF 20 MG/2 ML SDV IV SCH ×2 (09:52→22:14)
[2020-09-06] MEDS: METOPROLOL SUCCINATE 50 MG TAB.SR.24H PO SCH ×2 (09:53→22:14)
[2020-09-06] MEDS: DOXAZOSIN MESYLATE 4 MG TABLET PO SCH (09:53)
--- NOTE | 2020-09-06 10:43 | PDOC PROGRESS REPORT ---
Subjective Date:: 09/06/20 Subjective:: 74 year old female with a history of hypertension, who presents emergency depar tment with chest pain and not having a bowel movement for about 8 days. Patient reports that she has been vomiting brown vomitus. States that about 3 days ago, she went to urgent care where she was given a suppository, which only helped her have a very small bowel movement. Prior to that, 5 days prior she had her last bowel movement. 09/05/[id number]-tehz-old female with history of hypertension, history of cholecystectomy, hysterectomy admitted with nausea and vomitings and vomiting brown-colored vomitus. Surgical consult was done during the hospital stay recommendation is IV fluids, NG tube, pain management. KUB done this morning indicated of bowel obstruction and NG tube in the stomach. 09/06/[id number]-qmcg-old female admitted for small bowel obstruction. Still has NG tube in place. Follow-up KUB was done my impression is obstruction is still persisting. Waiting for the surgical team input. Reason For Visit: SMALL BOWEL OBSTRUCTION,ACUTE KIDNEY INJURY Physical Exam Vital Signs: Temp Pulse Resp BP Pulse Ox 97.8 F 82 19 146/92 H 100 09/06/20 08:28 09/06/20 08:28 09/06/20 08:28 09/06/20 08:28 09/06/20 08:28 Intake & Output 09/05/20 09/06/20 09/07/20 06:59 06:59 06:59 Intake Total 1000 1310 Output Total 450 500 Balance 550 810 Weight 95.9 kg 96.9 kg 96.9 kg General appearance: PRESENT: no acute distress, cooperative, well-developed Head exam: PRESENT: atraumatic Eye exam: PRESENT: PERRLA Ear exam: PRESENT: normal external ear exam Mouth exam: PRESENT: neck supple Teeth exam: PRESENT: poor dentation Neck exam: ABSENT: carotid bruit, JVD, lymphadenopathy, thyromegaly Respiratory exam: PRESENT: decreased breath sounds Cardiovascular exam: PRESENT: RRR. ABSENT: diastolic murmur, rubs, systolic murmur GI/Abdominal exam: PRESENT: normal bowel sounds, soft. ABSENT: distended, guard ing, mass, organolmegaly, rebound, tenderness Rectal exam: PRESENT: deferred Extremities exam: PRESENT: full ROM. ABSENT: calf tenderness, clubbing, pedal edema Neurological exam: PRESENT: alert, awake, oriented to person, oriented to place, oriented to time, oriented to situation, CN II-XII grossly intact. ABSENT: motor sensory deficit Psychiatric exam: PRESENT: appropriate affect, normal mood. ABSENT: homicidal ideation, suicidal ideation Results Laboratory Results: 09/06/20 05:26 09/06/20 05:26 09/05/20 09/05/20 09/06/20 09:36 20:30 05:26 WBC 9.9 7.0 RBC 4.09 3.54 L Hgb 11.4 L 10.0 L Hct 33.8 L 29.2 L MCV 83 82 MCH 27.9 28.3 MCHC 33.8 34.3 RDW 14.2 H 13.8 Plt Count 304 282 Seg Neutrophils % 66.6 58.4 Sodium Potassium Chloride Carbon Dioxide Anion Gap BUN Creatinine Est GFR ( Amer) Glucose Calcium Urine Color YELLOW Urine Appearance CLOUDY Urine pH 5.0 Ur Specific [place] 1.043 Urine Protein 30 H Urine Glucose (UA) NEGATIVE Urine Ketones 20 H Urine Blood SMALL H Urine Nitrite NEGATIVE Ur Leukocyte Esterase LARGE H Urine WBC (Auto) 5 Urine RBC (Auto) 2 09/06/20 05:26 WBC RBC Hgb Hct MCV MCH MCHC RDW Plt Count Seg Neutrophils % Sodium 135.4 L Potassium 3.6 Chloride 102 Carbon Dioxide 26 Anion Gap 7 BUN 12 Creatinine 1.12 Est GFR ( Amer) 58 L Glucose 82 Calcium 8.5 Urine Color Urine Appearance Urine pH Ur Specific [place] Urine Protein Urine Glucose (UA) Urine Ketones Urine Blood Urine Nitrite Ur Leukocyte Esterase Urine WBC (Auto) Urine RBC (Auto) 09/04/20 09/04/20 09/04/20 18:45 18:45 22:57 Creatine Kinase 82 CK-MB (CK-2) 0.66 Troponin I < 0.012 < 0.012 Impressions: Abdomen/Pelvis CT 09/04/20 18:35 IMPRESSION: 1. High-grade distal small bowel obstruction. 2. Normal appendix. Nondilated colon. Advanced sigmoid diverticulosis without obvious acute diverticulitis. 3. Multilevel degenerative changes in the lumbar spine. 4. Previous cholecystectomy and hysterectomy. Chest X-Ray 09/04/20 18:37 IMPRESSION: 1. Lungs are mildly hypoinflated with probable minimal basilar atelectasis. Possible pulmonary nodule at the left lung base. This can be evaluated with CT. 2. Some gas-filled bowel in the upper abdomen may reflect dilated small bowel. Patient is scheduled for CT abdomen pelvis. KUB X-Ray 09/05/20 03:18 IMPRESSION: NG tube in good position in the stomach. Assessment and Plan - Diagnosis (1) Bowel obstruction Qualifiers: Intestinal obstruction type: unspecified Intestinal obstruction extent: unspecified extent Qualified Code(s): K56.609 - Unspecified intestinal obstruction, unspecified as to partial versus complete obstruction Is this a current diagnosis for this admission?: Yes Plan: May be improving as evidenced by her bowel movement today. But still has abdominal distention. I do see air in the colon on her abdominal x-rays today. In light of the improvements, and no alarming signs for bowel compromise, will continue conservative management. Repeat x-rays in the morning. 09/06/2020-patient is comfortably in the bed communicating well. NG tube in place. On examination belly is soft nontender. Bowel sounds are present. Waiting for the surgical team recommendations. (2) Acute kidney injury Is this a current diagnosis for this admission?: Yes Plan: BUN/creatinine on this encounter was 15/1.54 Has no baseline to compare it with, could be CKD Currently patient is being hydrated Monitor kidney indicis Avoid nephrotoxic's and renally dose medications 09/06/2020-serum creatinine today is 1.12. Acute kidney injury is resolving. (3) Obesity (BMI 30-39.9) Is this a current diagnosis for this admission?: Yes (4) Hypokalemia Is this a current diagnosis for this admission?: Yes (5) Hypertension Is this a current diagnosis for this admission?: Yes Plan: Blood pressure is within acceptable range at this point Hold antihypertensive for now due to patient being n.p.o. Closely monitor vital signs 09/06/2020-blood pressure is 153/80. Stable. Plan is to closely monitor the vital signs. - Time Anticipated Discharge Disposition: Home, Self Care Anticipated Discharge Timeframe: within 24 hours
[2020-09-06] MEDS ORDERED: RINGERS SOLUTION,LACTATED 1,000 ML IV PRN (11:21)
--- NOTE | 2020-09-06 12:20 | RADIOLOGY REPORT (SQ) ---
EXAM DESCRIPTION: ABDOMEN 2 VIEWS IMAGES COMPLETED DATE/TIME: 09/06/2020 5:51 am REASON FOR STUDY: Follow-up partial small bowel obstruction D50.8 OTHER IRON DEFICIENCY ANEMIAS COMPARISON: 09/05/2020 NUMBER OF VIEWS: Two views. TECHNIQUE: Supine and erect/decubitus radiographic images of the abdomen acquired. LIMITATIONS: None. FINDINGS: FREE AIR: None. No abnormal gas collections. LUNG BASES: Clear. BOWEL GAS PATTERN: Diffuse gaseous distention of multiple dilated small bowel loops throughout the ab domen with relative paucity of bowel gas distally in the colon. Small amount of gas is demonstrated in the left colon and rectum. Degree of dilatation in the small bowel is slightly more pronounced fr om exam 1 day prior. Few air-fluid levels. CALCIFICATIONS: No suspicious calcifications. SOFT TISSUES: No gross mass or suggestion of organomegaly. HARDWARE: Nasogastric tube tip in side port projects over the stomach. BONES: No acute fracture. No worrisome bone lesions. OTHER: No other significant finding. IMPRESSION: Gas-filled dilated small bowel loops throughout the abdomen with probable slight increas e in dilatation from 1 day prior. TECHNICAL DOCUMENTATION: JOB ID: [id number] [employer]- All Rights Reserved Reading location - IP/workstation name: [email or web address]
--- NOTE | 2020-09-06 12:57 | PDOC PROGRESS REPORT ---
Subjective Date:: 09/06/20 Reason For Visit: SMALL BOWEL OBSTRUCTION,ACUTE KIDNEY INJURY Patient states no flatus, but does feel better. Acute abdominal series shows multiple dilated loops of small bowel on today's film, with some gas in the proximal transverse colon. Physical Exam Vital Signs: Temp Pulse Resp BP Pulse Ox 97.8 F 82 19 146/92 H 100 09/06/20 08:28 09/06/20 08:28 09/06/20 08:28 09/06/20 08:28 09/06/20 08:28 Intake & Output 09/05/20 09/06/20 09/07/20 06:59 06:59 06:59 Intake Total 1000 1310 Output Total 450 500 Balance 550 810 Weight 95.9 kg 96.9 kg 96.9 kg General appearance: PRESENT: no acute distress GI/Abdominal exam: PRESENT: other - Patient examined in the bed and then in the chair. Abdomen is semifirm, without peritoneal signs. Neurological exam: PRESENT: oriented to person, oriented to place, oriented to time, oriented to situation Results Laboratory Results: 09/06/20 05:26 09/06/20 05:26 09/05/20 09/06/20 09/06/20 20:30 05:26 05:26 WBC 7.0 RBC 3.54 L Hgb 10.0 L Hct 29.2 L MCV 82 MCH 28.3 MCHC 34.3 RDW 13.8 Plt Count 282 Seg Neutrophils % 58.4 Sodium 135.4 L Potassium 3.6 Chloride 102 Carbon Dioxide 26 Anion Gap 7 BUN 12 Creatinine 1.12 Est GFR ( Amer) 58 L Glucose 82 Calcium 8.5 Urine Color YELLOW Urine Appearance CLOUDY Urine pH 5.0 Ur Specific [place] 1.043 Urine Protein 30 H Urine Glucose (UA) NEGATIVE Urine Ketones 20 H Urine Blood SMALL H Urine Nitrite NEGATIVE Ur Leukocyte Esterase LARGE H Urine WBC (Auto) 5 Urine RBC (Auto) 2 09/04/20 09/04/20 09/04/20 18:45 18:45 22:57 Creatine Kinase 82 CK-MB (CK-2) 0.66 Troponin I < 0.012 < 0.012 Impressions: Abdomen/Pelvis CT 09/04/20 18:35 IMPRESSION: 1. High-grade distal small bowel obstruction. 2. Normal appendix. Nondilated colon. Advanced sigmoid diverticulosis without obvious acute diverticulitis. 3. Multilevel degenerative changes in the lumbar spine. 4. Previous cholecystectomy and hysterectomy. Chest X-Ray 09/04/20 18:37 IMPRESSION: 1. Lungs are mildly hypoinflated with probable minimal basilar atelectasis. Possible pulmonary nodule at the left lung base. This can be evaluated with CT. 2. Some gas-filled bowel in the upper abdomen may reflect dilated small bowel. Patient is scheduled for CT abdomen pelvis. KUB X-Ray 09/05/20 03:18 IMPRESSION: NG tube in good position in the stomach. Abdomen X-Ray 09/06/20 07:00 IMPRESSION: Gas-filled dilated small bowel loops throughout the abdomen with probable slight increase in dilatation from 1 day prior. Assessment & Plan - Diagnosis (1) Bowel obstruction Qualifiers: Intestinal obstruction type: unspecified Intestinal obstruction extent: unspecified extent Qualified Code(s): K56.609 - Unspecified intestinal obstruction, unspecified as to partial versus complete obstruction Is this a current diagnosis for this admission?: Yes Plan: Impression: Small bowel obstruction not resolved. No evidence of peritonitis. Recommendations: 1. We will obtain small bowel follow-through, placing contrast through nasogastric tube. 2. We will continue to follow closely with you. 3. Discussed above with hospitalist service. - Time Anticipated Discharge Disposition: Home, Self Care Anticipated Discharge Timeframe: within 24 hours
[2020-09-06] MEDS: RINGERS SOLUTION,LACTATED 1,000 ML IV PRN (19:00)
[2020-09-07] MEDS: HEPARIN SOD (PORCINE) 5,000 UNIT/ML 1 ML VIAL SUBCUT SCH ×3 (05:39→21:19)
--- NOTE | 2020-09-07 09:21 | PDOC PROGRESS REPORT ---
Subjective Date:: 09/07/20 Reason For Visit: SMALL BOWEL OBSTRUCTION,ACUTE KIDNEY INJURY Patient did well overnight following upper GI small bowel follow-through. Abdominal film this morning shows significant amount of transit in the colon. Patient still has mildly dilated small bowel loops. There is no kristine evidence of obstruction. She reports no abdominal pain Physical Exam Vital Signs: Temp Pulse Resp BP Pulse Ox 98.1 F 89 17 125/65 95 09/07/20 07:56 09/07/20 07:56 09/07/20 07:56 09/07/20 07:56 09/07/20 07:56 Intake & Output 09/06/20 09/07/20 09/08/20 06:59 06:59 06:59 Intake Total 1310 2383 Output Total 500 2 Balance 810 2381 Weight 96.9 kg 97 kg General appearance: PRESENT: no acute distress GI/Abdominal exam: PRESENT: other - The abdomen is soft, nontender no peritoneal signs only distended but no tympany. Results Laboratory Results: 09/06/20 05:26 09/06/20 05:26 09/04/20 09/04/20 09/04/20 18:45 18:45 22:57 Creatine Kinase 82 CK-MB (CK-2) 0.66 Troponin I < 0.012 < 0.012 Impressions: Abdomen/Pelvis CT 09/04/20 18:35 IMPRESSION: 1. High-grade distal small bowel obstruction. 2. Normal appendix. Nondilated colon. Advanced sigmoid diverticulosis without obvious acute diverticulitis. 3. Multilevel degenerative changes in the lumbar spine. 4. Previous cholecystectomy and hysterectomy. Chest X-Ray 09/04/20 18:37 IMPRESSION: 1. Lungs are mildly hypoinflated with probable minimal basilar atelectasis. Possible pulmonary nodule at the left lung base. This can be evaluated with CT. 2. Some gas-filled bowel in the upper abdomen may reflect dilated small bowel. Patient is scheduled for CT abdomen pelvis. KUB X-Ray 09/05/20 03:18 IMPRESSION: NG tube in good position in the stomach. Assessment & Plan - Diagnosis (1) Bowel obstruction Qualifiers: Intestinal obstruction type: unspecified Intestinal obstruction extent: unspecified extent Qualified Code(s): K56.609 - Unspecified intestinal obstruction, unspecified as to partial versus complete obstruction Is this a current diagnosis for this admission?: Yes Plan: Impression: Partial small bowel obstruction resolving nonoperatively based on clinical and radiographic assessment Plan: 1. Discontinue nasogastric tube; start clear liquids 2. Anticipate diet advancement over the next 24 hours with discharge home soon. (2) Acute kidney injury Is this a current diagnosis for this admission?: Yes (3) Hypertension Is this a current diagnosis for this admission?: Yes (4) Obesity (BMI 30-39.9) Is this a current diagnosis for this admission?: Yes - Time Anticipated Discharge Disposition: Home, Self Care Anticipated Discharge Timeframe: within 24 hours
--- NOTE | 2020-09-07 09:22 | RADIOLOGY REPORT (SQ) ---
EXAM DESCRIPTION: ABDOMEN 2 VIEWS IMAGES COMPLETED DATE/TIME: 09/07/2020 7:59 am REASON FOR STUDY: Interval change in small bowel obstruction D50.8 OTHER IRON DEFICIENCY ANEMIAS COMPARISON: 09/06/2020 at 0849 hours. NUMBER OF VIEWS: Two views. TECHNIQUE: Supine and erect/decubitus radiographic images of the abdomen acquired. LIMITATIONS: None. FINDINGS: FREE AIR: None. No abnormal gas collections. LUNG BASES: Clear. BOWEL GAS PATTERN: Small bowel dilation, unchanged. Contrast in the colon. CALCIFICATIONS: No suspicious calcifications. SOFT TISSUES: No gross mass or suggestion of organomegaly. HARDWARE: Nasogastric tube, tip in the stomach. BONES: No acute fracture. No worrisome bone lesions. OTHER: No other significant finding. IMPRESSION: NO SIGNIFICANT CHANGE IN THE SMALL BOWEL DILATION. TECHNICAL DOCUMENTATION: JOB ID: [id number] 2010 [employer]- All Rights Reserved Reading location - IP/workstation name: [email or web address]
--- NOTE | 2020-09-07 09:26 | RADIOLOGY REPORT (SQ) ---
EXAM DESCRIPTION: SMALL BOWEL SERIES IMAGES COMPLETED DATE/TIME: 09/06/2020 8:09 pm REASON FOR STUDY: Rule out mechanical small bowel obstruction D50.8 OTHER IRON DEFICIENCY ANEMIAS COMPARISON: None. FLUOROSCOPY TIME: No fluoroscopy. 5 images saved to PACS. LIMITATIONS: None. PROCEDURE: Initial shield operator image of abdomen acquired, followed by administration of 240 mL Gastrografi n and 60 mL water. Serial radiographic images acquired. All images stored on PACS. FINDINGS: STOMACH: No significant reflux. Normal distention without abnormality. SMALL BOWEL: Moderate diffuse small bowel dilation. No evidence of gross intrinsic or extrinsic mas s. PROXIMAL COLON: Contrast present in the colon at 4 hours. Incompletely imaged. No abnormality. OTHER: No other significant finding. IMPRESSION: DIFFUSE SMALL BOWEL DILATION WITH CONTRAST PRESENT IN THE COLON AT 4 HOURS. LIKELY DUE TO DIFFUSE ILEUS. COMMENT: Quality ID [id number]: Final reports for procedures using fluoroscopy that document radiation exp osure indices, or exposure time and number of fluorographic images (if radiation exposure indices are not available) TECHNICAL DOCUMENTATION: JOB ID: [id number] 2010 [employer]- All Rights Reserved Reading location - IP/workstation name: [email or web address]
--- NOTE | 2020-09-07 11:00 | PDOC PROGRESS REPORT ---
Subjective Date:: 09/07/20 Subjective:: 74 year old female with a history of hypertension, who presents emergency depar tment with chest pain and not having a bowel movement for about 8 days. Patient reports that she has been vomiting brown vomitus. States that about 3 days ago, she went to urgent care where she was given a suppository, which only helped her have a very small bowel movement. Prior to that, 5 days prior she had her last bowel movement. 09/05/[id number]-nfyw-old female with history of hypertension, history of cholecystectomy, hysterectomy admitted with nausea and vomitings and vomiting brown-colored vomitus. Surgical consult was done during the hospital stay recommendation is IV fluids, NG tube, pain management. KUB done this morning indicated of bowel obstruction and NG tube in the stomach. 09/06/[id number]-lsat-old female admitted for small bowel obstruction. Still has NG tube in place. Follow-up KUB was done my impression is obstruction is still persisting. Waiting for the surgical team input. 09/07/2041-22-auau-old female admitted with small bowel obstruction resolving. Patient has a good bowel movements. NG tube was removed by surgery today and she was started on clear liquids. Patient denies any abdominal pains. Plan is to closely monitor her for today and possible discharge tomorrow. Reason For Visit: SMALL BOWEL OBSTRUCTION,ACUTE KIDNEY INJURY Physical Exam Vital Signs: Temp Pulse Resp BP Pulse Ox 98.1 F 89 17 125/65 95 09/07/20 07:56 09/07/20 07:56 09/07/20 07:56 09/07/20 07:56 09/07/20 07:56 Intake & Output 09/06/20 09/07/20 09/08/20 06:59 06:59 06:59 Intake Total 1310 2383 Output Total 500 2 Balance 810 2381 Weight 96.9 kg 97 kg General appearance: PRESENT: no acute distress Head exam: PRESENT: atraumatic Eye exam: PRESENT: PERRLA Mouth exam: PRESENT: moist, tongue midline Teeth exam: PRESENT: poor dentation Respiratory exam: PRESENT: clear to auscultation marlen. ABSENT: rales, rhonchi, wheezes Cardiovascular exam: PRESENT: RRR. ABSENT: diastolic murmur, rubs, systolic murmur Pulses: PRESENT: normal dorsalis pedis pul GI/Abdominal exam: PRESENT: normal bowel sounds, soft. ABSENT: distended, guarding, mass, organolmegaly, rebound, tenderness Rectal exam: PRESENT: deferred Extremities exam: PRESENT: full ROM. ABSENT: calf tenderness, clubbing, pedal edema Neurological exam: PRESENT: alert, awake, oriented to person, oriented to place, oriented to time, oriented to situation, CN II-XII grossly intact. ABSENT: motor sensory deficit Psychiatric exam: PRESENT: appropriate affect, normal mood. ABSENT: homicidal ideation, suicidal ideation Results Laboratory Results: 09/06/20 05:26 09/06/20 05:26 09/04/20 09/04/20 09/04/20 18:45 18:45 22:57 Creatine Kinase 82 CK-MB (CK-2) 0.66 Troponin I < 0.012 < 0.012 Impressions: Abdomen/Pelvis CT 09/04/20 18:35 IMPRESSION: 1. High-grade distal small bowel obstruction. 2. Normal appendix. Nondilated colon. Advanced sigmoid diverticulosis without obvious acute diverticulitis. 3. Multilevel degenerative changes in the lumbar spine. 4. Previous cholecystectomy and hysterectomy. Chest X-Ray 09/04/20 18:37 IMPRESSION: 1. Lungs are mildly hypoinflated with probable minimal basilar atelectasis. Possible pulmonary nodule at the left lung base. This can be evaluated with CT. 2. Some gas-filled bowel in the upper abdomen may reflect dilated small bowel. Patient is scheduled for CT abdomen pelvis. KUB X-Ray 09/05/20 03:18 IMPRESSION: NG tube in good position in the stomach. Small Bowel X-Ray 09/06/20 00:00 IMPRESSION: DIFFUSE SMALL BOWEL DILATION WITH CONTRAST PRESENT IN THE COLON AT 4 HOURS. LIKELY DUE TO DIFFUSE ILEUS. Abdomen X-Ray 09/07/20 00:00 IMPRESSION: NO SIGNIFICANT CHANGE IN THE SMALL BOWEL DILATION. Assessment and Plan - Diagnosis (1) Bowel obstruction Qualifiers: Intestinal obstruction type: unspecified Intestinal obstruction extent: unspecified extent Qualified Code(s): K56.609 - Unspecified intestinal obstruction, unspecified as to partial versus complete obstruction Is this a current diagnosis for this admission?: Yes Plan: Impression: Partial small bowel obstruction resolving nonoperatively based on clinical and radiographic assessment Plan: 1. Discontinue nasogastric tube; start clear liquids 2. Anticipate diet advancement over the next 24 hours with discharge home soon. 09/07/2020-patient has good bowel movements today. NG tube was removed started on clear liquids. Patient may be able to go home tomorrow. (2) Acute kidney injury Is this a current diagnosis for this admission?: Yes Plan: BUN/creatinine on this encounter was 15/.54 Has no baseline to compare it with, could be CKD Currently patient is being hydrated Monitor kidney indicis Avoid nephrotoxic's and renally dose medications 09/06/2020-serum creatinine today is 1.12. Acute kidney injury is resolving. (3) Obesity (BMI 30-39.9) Is this a current diagnosis for this admission?: Yes Plan: Encourage lifestyle modification including exercise and dietary habits change (4) Hypokalemia Is this a current diagnosis for this admission?: Yes Plan: Potassium was borderline low at 3.5 Likely due to GI loss from vomiting Replete with potassium chloride IV Continue monitoring electrolytes closely and replete as necessary 09/07/20-latest serum potassium is 3.6 hyperkalemia resolved. (5) Hypertension Is this a current diagnosis for this admission?: No Plan: Blood pressure is within acceptable range at this point Hold antihypertensive for now due to patient being n.p.o. Closely monitor vital signs 09/06/2020-blood pressure is 153/80. Stable. Plan is to closely monitor the vital signs. 09/07/2020-blood pressure today is 152/90. Stable. Plan is to closely monitor the labs. To discontinue IV fluids. - Time Anticipated Discharge Disposition: Home, Self Care Anticipated Discharge Timeframe: within 24 hours
[2020-09-07] MEDS: METOPROLOL SUCCINATE 50 MG TAB.SR.24H PO SCH ×2 (11:07→21:19)
[2020-09-07] MEDS: DOXAZOSIN MESYLATE 4 MG TABLET PO SCH (11:07)
[2020-09-07] MEDS: FAMOTIDINE INJ/PF 20 MG/2 ML SDV IV SCH ×2 (11:07→21:19)
[2020-09-07] MEDS ORDERED: DIPHENHYDRAMINE HCL 50 MG/ML VIAL IV PRN (17:40)
[2020-09-08] MEDS: HEPARIN SOD (PORCINE) 5,000 UNIT/ML 1 ML VIAL SUBCUT SCH ×3 (05:16→21:57)
[2020-09-08 08:30] LABS: ABSOLUTE BASOPHILS # (AUTO) 0.1 10^3/uL (0.0-0.2); ABSOLUTE EOSINOPHILS # (AUTO) 0.2 10^3/uL (0.0-0.6); ABSOLUTE LYMPHOCYTES (AUTO) 1.5 10^3/uL (0.5-4.7); ABSOLUTE MONOCYTES (AUTO) 0.5 10^3/uL (0.1-1.4); ABSOLUTE NEUT (AUTO) 3.6 10^3/uL (1.7-8.2); BASOPHILS % (AUTO) 1.1 % (0-2); EOSINOPHILS % (AUTO) 3.3 % (0-6); HEMATOCRIT 30.1 % (36.0-47.0); HEMOGLOBIN 10.1 g/dL (12.0-15.5); MEAN CORPUSCULAR HEMOGLOBIN 27.3 pg (27.0-33.4); MEAN CORPUSCULAR HGB CONC 33.4 g/dL (32.0-36.0); MEAN CORPUSCULAR VOLUME 82 fl (80-97); MONOCYTES % (AUTO) 8.1 % (3-13); PLATELET COUNT 278 10^3/uL (150-450); RED BLOOD COUNT 3.68 10^6/uL (3.72-5.28); RED CELL DISTRIBUTION WIDTH 14.2 % (11.5-14.0); SEGMENTED NEUTROPHILS % (AUTO) 61.5 % (42-78); TOTAL CELLS COUNTED % (AUTO) 100 %; WHITE BLOOD COUNT 5.9 10^3/uL (4.0-10.5)
[2020-09-08 08:42] LABS: ALBUMIN 3.1 g/dL (3.5-5.0); ALKALINE PHOSPHATASE 60 U/L (38-126); ANION GAP 6 (5-19); ASPARTATE AMINO TRANSFERASE 16 U/L (14-36); BILIRUBIN,DIRECT 0.2 mg/dL (0.0-0.4); BILIRUBIN,TOTAL 0.4 mg/dL (0.2-1.3); BLOOD UREA NITROGEN 6 mg/dL (7-20); CALCIUM 8.3 mg/dL (8.4-10.2); CARBON DIOXIDE 27 mmol/L (22-30); CHLORIDE 105 mmol/L (98-107); GLUCOSE 83 mg/dL (75-110); POTASSIUM 3.6 mmol/L (3.6-5.0); TOTAL PROTEIN 5.8 g/dL (6.3-8.2)
[2020-09-08] MEDS: DOXAZOSIN MESYLATE 4 MG TABLET PO SCH (09:09)
[2020-09-08] MEDS: METOPROLOL SUCCINATE 50 MG TAB.SR.24H PO SCH ×2 (09:10→21:58)
[2020-09-08] MEDS: FAMOTIDINE INJ/PF 20 MG/2 ML SDV IV SCH (09:10)
[2020-09-08] MEDS: ONDANSETRON HCL INJ/PF 4 MG/2 ML SDV IV PRN (10:06)
--- NOTE | 2020-09-08 11:17 | PDOC PROGRESS REPORT ---
Subjective Date:: 09/08/20 Reason For Visit: SMALL BOWEL OBSTRUCTION,ACUTE KIDNEY INJURY Patient doing reasonably well, occasional nausea however tolerating clear liquid diet Physical Exam Vital Signs: Temp Pulse Resp BP Pulse Ox 98.1 F 66 16 123/65 96 09/08/20 07:45 09/08/20 07:45 09/08/20 07:45 09/08/20 07:45 09/08/20 07:45 Intake & Output 09/07/20 09/08/20 09/09/20 06:59 06:59 06:59 Intake Total 2383 451 Output Total 2 Balance 2381 451 Weight 97 kg 98.2 kg General appearance: PRESENT: no acute distress GI/Abdominal exam: PRESENT: other - Abdomen slightly distended, no peritoneal signs no rigidity. Results Laboratory Results: 09/08/20 07:49 09/08/20 07:49 09/08/20 09/08/20 07:49 07:49 WBC 5.9 RBC 3.68 L Hgb 10.1 L Hct 30.1 L MCV 82 MCH 27.3 MCHC 33.4 RDW 14.2 H Plt Count 278 Seg Neutrophils % 61.5 Sodium 137.6 Potassium 3.6 Chloride 105 Carbon Dioxide 27 Anion Gap 6 BUN 6 L Creatinine 0.97 Est GFR ( Amer) > 60 Glucose 83 Calcium 8.3 L Magnesium 1.9 Total Bilirubin 0.4 AST 16 Alkaline Phosphatase 60 Total Protein 5.8 L Albumin 3.1 L 09/04/20 09/04/20 09/04/20 18:45 18:45 22:57 Creatine Kinase 82 CK-MB (CK-2) 0.66 Troponin I < 0.012 < 0.012 Impressions: Abdomen/Pelvis CT 09/04/20 18:35 IMPRESSION: 1. High-grade distal small bowel obstruction. 2. Normal appendix. Nondilated colon. Advanced sigmoid diverticulosis without obvious acute diverticulitis. 3. Multilevel degenerative changes in the lumbar spine. 4. Previous cholecystectomy and hysterectomy. Chest X-Ray 09/04/20 18:37 IMPRESSION: 1. Lungs are mildly hypoinflated with probable minimal basilar atelectasis. Possible pulmonary nodule at the left lung base. This can be evaluated with CT. 2. Some gas-filled bowel in the upper abdomen may reflect dilated small bowel. Patient is scheduled for CT abdomen pelvis. KUB X-Ray 09/05/20 03:18 IMPRESSION: NG tube in good position in the stomach. Small Bowel X-Ray 09/06/20 00:00 IMPRESSION: DIFFUSE SMALL BOWEL DILATION WITH CONTRAST PRESENT IN THE COLON AT 4 HOURS. LIKELY DUE TO DIFFUSE ILEUS. Abdomen X-Ray 09/07/20 00:00 IMPRESSION: NO SIGNIFICANT CHANGE IN THE SMALL BOWEL DILATION. Assessment & Plan - Diagnosis (1) Bowel obstruction Qualifiers: Intestinal obstruction type: unspecified Intestinal obstruction extent: unspecified extent Qualified Code(s): K56.609 - Unspecified intestinal obstruction, unspecified as to partial versus complete obstruction Is this a current diagnosis for this admission?: Yes Plan: Impression: Partial small bowel obstruction resolving; no indication for surgical intervention Recommendations: 1. Supportive therapy; Patient may benefit from modified diet, rather than regular groceries, until her bowels have fully recovered 2. Surgery will sign off. Please reconsult if clinically indicated. (2) Acute kidney injury Is this a current diagnosis for this admission?: Yes (3) Hypertension Is this a current diagnosis for this admission?: No (4) Obesity (BMI 30-39.9) Is this a current diagnosis for this admission?: Yes - Time Anticipated Discharge Disposition: Home, Self Care Anticipated Discharge Timeframe: within 24 hours
--- NOTE | 2020-09-08 11:30 | PDOC PROGRESS REPORT ---
Subjective Date:: 09/08/20 Subjective:: 74 year old female with a history of hypertension, who presents emergency depar tment with chest pain and not having a bowel movement for about 8 days. Patient reports that she has been vomiting brown vomitus. States that about 3 days ago, she went to urgent care where she was given a suppository, which only helped her have a very small bowel movement. Prior to that, 5 days prior she had her last bowel movement. 09/05/[id number]-wwje-old female with history of hypertension, history of cholecystectomy, hysterectomy admitted with nausea and vomitings and vomiting brown-colored vomitus. Surgical consult was done during the hospital stay recommendation is IV fluids, NG tube, pain management. KUB done this morning indicated of bowel obstruction and NG tube in the stomach. 09/06/[id number]-tmej-old female admitted for small bowel obstruction. Still has NG tube in place. Follow-up KUB was done my impression is obstruction is still persisting. Waiting for the surgical team input. 09/07/2079-97-sagh-old female admitted with small bowel obstruction resolving. Patient has a good bowel movements. NG tube was removed by surgery today and she was started on clear liquids. Patient denies any abdominal pains. Plan is to closely monitor her for today and possible discharge tomorrow. [id number]-vcqb-old female admitted with small bowel obstruction resolving. She tolerated clear liquids. Have good bowel movements. Surgery signed off on her. Recommendation is low-sodium diet. If the patient able to tolerate the diet today may be able to go home tomorrow. If the patient insists on going she may go home this evening. Reason For Visit: SMALL BOWEL OBSTRUCTION,ACUTE KIDNEY INJURY Physical Exam Vital Signs: Temp Pulse Resp BP Pulse Ox 98.1 F 66 16 123/65 96 09/08/20 07:45 09/08/20 07:45 09/08/20 07:45 09/08/20 07:45 09/08/20 07:45 Intake & Output 09/07/20 09/08/20 09/09/20 06:59 06:59 06:59 Intake Total 2383 451 Output Total 2 Balance 2381 451 Weight 97 kg 98.2 kg General appearance: PRESENT: no acute distress, cooperative Head exam: PRESENT: atraumatic Eye exam: PRESENT: PERRLA Mouth exam: PRESENT: moist, tongue midline Teeth exam: PRESENT: poor dentation Neck exam: ABSENT: carotid bruit, JVD, lymphadenopathy, thyromegaly Respiratory exam: PRESENT: decreased breath sounds Cardiovascular exam: PRESENT: RRR. ABSENT: diastolic murmur, rubs, systolic murmur Pulses: PRESENT: normal dorsalis pedis pul GI/Abdominal exam: PRESENT: normal bowel sounds, soft. ABSENT: distended, guarding, mass, organolmegaly, rebound, tenderness Rectal exam: PRESENT: deferred Extremities exam: PRESENT: full ROM. ABSENT: calf tenderness, clubbing, pedal edema Neurological exam: PRESENT: alert, awake, oriented to person, oriented to place, oriented to time, oriented to situation, CN II-XII grossly intact. ABSENT: motor sensory deficit Psychiatric exam: PRESENT: appropriate affect, normal mood. ABSENT: homicidal ideation, suicidal ideation Results Laboratory Results: 09/08/20 07:49 09/08/20 07:49 09/08/20 09/08/20 07:49 07:49 WBC 5.9 RBC 3.68 L Hgb 10.1 L Hct 30.1 L MCV 82 MCH 27.3 MCHC 33.4 RDW 14.2 H Plt Count 278 Seg Neutrophils % 61.5 Sodium 137.6 Potassium 3.6 Chloride 105 Carbon Dioxide 27 Anion Gap 6 BUN 6 L Creatinine 0.97 Est GFR ( Amer) > 60 Glucose 83 Calcium 8.3 L Magnesium 1.9 Total Bilirubin 0.4 AST 16 Alkaline Phosphatase 60 Total Protein 5.8 L Albumin 3.1 L 09/04/20 09/04/20 09/04/20 18:45 18:45 22:57 Creatine Kinase 82 CK-MB (CK-2) 0.66 Troponin I < 0.012 < 0.012 Impressions: Abdomen/Pelvis CT 09/04/20 18:35 IMPRESSION: 1. High-grade distal small bowel obstruction. 2. Normal appendix. Nondilated colon. Advanced sigmoid diverticulosis without obvious acute diverticulitis. 3. Multilevel degenerative changes in the lumbar spine. 4. Previous cholecystectomy and hysterectomy. Chest X-Ray 09/04/20 18:37 IMPRESSION: 1. Lungs are mildly hypoinflated with probable minimal basilar atelectasis. Possible pulmonary nodule at the left lung base. This can be evaluated with CT. 2. Some gas-filled bowel in the upper abdomen may reflect dilated small bowel. Patient is scheduled for CT abdomen pelvis. KUB X-Ray 09/05/20 03:18 IMPRESSION: NG tube in good position in the stomach. Small Bowel X-Ray 09/06/20 00:00 IMPRESSION: DIFFUSE SMALL BOWEL DILATION WITH CONTRAST PRESENT IN THE COLON AT 4 HOURS. LIKELY DUE TO DIFFUSE ILEUS. Abdomen X-Ray 09/07/20 00:00 IMPRESSION: NO SIGNIFICANT CHANGE IN THE SMALL BOWEL DILATION. Assessment and Plan - Diagnosis (1) Bowel obstruction Qualifiers: Intestinal obstruction type: unspecified Intestinal obstruction extent: un specified extent Qualified Code(s): K56.609 - Unspecified intestinal obst ruction, unspecified as to partial versus complete obstruction Is this a current diagnosis for this admission?: Yes Plan: Impression: Partial small bowel obstruction resolving; no indication for surgical intervention Recommendations: 1. Supportive therapy; Patient may benefit from modified diet, rather than regular groceries, until her bowels have fully recovered 2. Surgery will sign off. Please reconsult if clinically indicated. 09/08/2020-patient was started on low-sodium diet today. If she able to tolerate the diet may be able to go home this evening if not tomorrow. (2) Acute kidney injury Is this a current diagnosis for this admission?: Yes Plan: BUN/creatinine on this encounter was 15/1.54 Has no baseline to compare it with, could be CKD Currently patient is being hydrated Monitor kidney indicis Avoid nephrotoxic's and renally dose medications 09/06/2020-serum creatinine today is 1.12. Acute kidney injury is resolving. 09/08/2020-serum creatinine today 0.97 acute kidney injury resolved. (3) Obesity (BMI 30-39.9) Is this a current diagnosis for this admission?: Yes Plan: Encourage lifestyle modification including exercise and dietary habits change (4) Hypokalemia Is this a current diagnosis for this admission?: Yes Plan: Potassium was borderline low at 3.5 Likely due to GI loss from vomiting Replete with potassium chloride IV Continue monitoring electrolytes closely and replete as necessary 09/07/20-latest serum potassium is 3.6 hyperkalemia resolved. (5) Hypertension Is this a current diagnosis for this admission?: No Plan: Blood pressure is within acceptable range at this point Hold antihypertensive for now due to patient being n.p.o. Closely monitor vital signs 09/06/2020-blood pressure is 153/80. Stable. Plan is to closely monitor the vital signs. 09/07/2020-blood pressure today is 152/90. Stable. Plan is to closely monitor the labs. To discontinue IV fluids. -blood pressure today is 135/62. Stable. - Time Anticipated Discharge Disposition: Home, Self Care Anticipated Discharge Timeframe: within 24 hours
[2020-09-08] MEDS: PANTOPRAZOLE SODIUM 40 MG TABLET.DR PO SCH (16:20)
[2020-09-09] MEDS: HEPARIN SOD (PORCINE) 5,000 UNIT/ML 1 ML VIAL SUBCUT SCH (05:58)
[2020-09-09] MEDS: PANTOPRAZOLE SODIUM 40 MG TABLET.DR PO SCH (05:58)
[2020-09-09] MEDS: METOPROLOL SUCCINATE 50 MG TAB.SR.24H PO SCH (09:22)
[2020-09-09] MEDS: DOXAZOSIN MESYLATE 4 MG TABLET PO SCH (09:22)
[2020-09-09] MEDS ORDERED: MAGNESIUM CITRATE 296 ML BOTTLE PO ONE (10:00)
[2020-09-09 12:56] VITALS: BP 153/80
--- NOTE | 2020-09-09 17:24 | PDOC DISCHARGE SUMMARY ---
Impression - Admit/DC Date/PCP Admission Date/Primary Care Provider: 09/05/20 02:58 ROXANA VELEZ MD (1) Bowel obstruction Qualifiers: Intestinal obstruction type: unspecified Intestinal obstruction extent: unspecified extent Qualified Code(s): K56.609 - Unspecified intestinal obstruction, unspecified as to partial versus complete obstruction Is this a current diagnosis for this admission?: Yes Plan: Impression: Partial small bowel obstruction resolving; no indication for surgical intervention Recommendations: 1. Supportive therapy; Patient may benefit from modified diet, rather than regular groceries, until her bowels have fully recovered 2. Surgery will sign off. Please reconsult if clinically indicated. 09/08/2020-patient was started on low-sodium diet today. If she able to tolerate the diet may be able to go home this evening if not tomorrow. 09/09/2020-small bowel obstruction resolved. Able to tolerate the diet. Good bowel movement. Patient is going home today. (2) Acute kidney injury Is this a current diagnosis for this admission?: Yes Plan: BUN/creatinine on this encounter was 15/1.54 Has no baseline to compare it with, could be CKD Currently patient is being hydrated Monitor kidney indicis Avoid nephrotoxic's and renally dose medications 09/06/2020-serum creatinine today is 1.12. Acute kidney injury is resolving. 09/08/2020-serum creatinine today 0.97 acute kidney injury resolved. (3) Obesity (BMI 30-39.9) Is this a current diagnosis for this admission?: Yes Plan: Encourage lifestyle modification including exercise and dietary habits change (4) Hypokalemia Is this a current diagnosis for this admission?: Yes Plan: Potassium was borderline low at 3.5 Likely due to GI loss from vomiting Replete with potassium chloride IV Continue monitoring electrolytes closely and replete as necessary 09/07/20-latest serum potassium is 3.6 hyperkalemia resolved. (5) Hypertension Is this a current diagnosis for this admission?: No Plan: Blood pressure is within acceptable range at this point Hold antihypertensive for now due to patient being n.p.o. Closely monitor vital signs 09/06/2020-blood pressure is 153/80. Stable. Plan is to closely monitor the vital signs. 09/07/2020-blood pressure today is 152/90. Stable. Plan is to closely monitor the labs. To discontinue IV fluids. -blood pressure today is 135/62. Stable. - Time Anticipated Discharge Disposition: Home, Self Care Anticipated Discharge Timeframe: within 24 hours Discharge Date: 09/09/20 - Discharge Diagnosis (1) Bowel obstruction Is this a current diagnosis for this admission?: Yes (2) Acute kidney injury Is this a current diagnosis for this admission?: Yes (3) Obesity (BMI 30-39.9) Is this a current diagnosis for this admission?: Yes (4) Hypokalemia Is this a current diagnosis for this admission?: Yes (5) Hypertension Is this a current diagnosis for this admission?: No - Additional Information Resuscitation Status: Full Code Discharge Diet: As Tolerated Discharge Activity: Activity As Tolerated Referrals: ROXANA VELEZ MD [Primary Care Provider] - 09/23/20 10:00 am () Home Medications: Doxazosin Mesylate [Cardura 4 mg Tablet] 4 mg PO DAILY 09/05/20 Furosemide [Lasix 40 mg Tablet] 40 mg PO DAILY 09/05/20 Metoprolol Succinate [Toprol Xl 50 mg Tab.sr] 50 mg PO BID 09/05/20 Potassium Chloride [Klor-Con 8] 8 meq PO DAILY 09/05/20 History of Present Illiness History of Present Illness: WILIAM SANDY is a 74 year old female 74 year old female with a history of hypertension presents to the ED reporting that she has not been able to have a bowel movement including both gas and stool for the past 8 days. This is associated with a cramping generalized cramping abdominal pain with associated nausea and nonbloody vomiting of ingested matter. She had visited urgent care clinic 4 days back and was given enema after which she was able to pass scanty amount of stool 1 time but continues to have failure to pass gas and since then. She has a remote history of cholecystectomy and hysterectomy but denies any recent abdominal surgery. She has no fever, chills, cough, palpitation, dizziness. On presentation to the ED patient had reported associated typical chest pain and she had 2 sets of cardiac enzymes which were negative and EKG obtained showed no significant ST-T wave changes. She has been evaluated by surgical team at the ED and NG tube has already been inserted. Patient is now being admitted to medical service for continued management of possible small bowel obstruction. Hospital Course Hospital Course: 74 year old female with a history of hypertension, who presents emergency department with chest pain and not having a bowel movement for about 8 days. Patient reports that she has been vomiting brown vomitus. States that about 3 days ago, she went to urgent care where she was given a suppository, which only helped her have a very small bowel movement. Prior to that, 5 days prior she had her last bowel movement. 09/05/[id number]-edlo-old female with history of hypertension, history of cholecystectomy, hysterectomy admitted with nausea and vomitings and vomiting brown-colored vomitus. Surgical consult was done during the hospital stay recommendation is IV fluids, NG tube, pain management. KUB done this morning indicated of bowel obstruction and NG tube in the stomach. 09/06/[id number]-lrlg-old female admitted for small bowel obstruction. Still has NG tube in place. Follow-up KUB was done my impression is obstruction is still persisting. Waiting for the surgical team input. 09/07/2018-74-jjye-old female admitted with small bowel obstruction resolving. Patient has a good bowel movements. NG tube was removed by surgery today and she was started on clear liquids. Patient denies any abdominal pains. Plan is to closely monitor her for today and possible discharge tomorrow. [id number]-old female admitted with small bowel obstruction resolving. She tolerated clear liquids. Have good bowel movements. Surgery signed off on her. Recommendation is low-sodium diet. If the patient able to tolerate the diet today may be able to go home tomorrow. If the patient insists on going she may go home this evening. 09/09/[id number]-mpxj-old female admitted with small bowel obstruction. Surgical consult was requested during the hospital stay Dr. Reynolds signed off yesterday. Patient able to tolerate the diet well. She has a good bowel movements. Follow-up KUB is indicating contrast in the colon. Patient is stable to go home today and follow-up with PCP next week. Physical Exam Vital Signs: Temp Pulse Resp BP Pulse Ox 98.3 F 66 16 153/80 H 96 09/09/20 12:50 09/09/20 12:50 09/09/20 12:50 09/09/20 12:50 09/09/20 12:50 Intake & Output 09/08/20 09/09/20 09/10/20 06:59 06:59 06:59 Intake Total 451 1032 Output Total 300 Balance 451 732 Weight 98.2 kg 95.5 kg General appearance: PRESENT: no acute distress, cooperative Head exam: PRESENT: atraumatic Eye exam: PRESENT: PERRLA Ear exam: PRESENT: normal external ear exam Mouth exam: PRESENT: neck supple Teeth exam: PRESENT: poor dentation Neck exam: ABSENT: carotid bruit, JVD, lymphadenopathy, thyromegaly Respiratory exam: PRESENT: decreased breath sounds Cardiovascular exam: PRESENT: RRR. ABSENT: diastolic murmur, rubs, systolic murmur Pulses: PRESENT: normal dorsalis pedis pul GI/Abdominal exam: PRESENT: normal bowel sounds, soft. ABSENT: distended, guarding, mass, organolmegaly, rebound, tenderness Rectal exam: PRESENT: deferred Extremities exam: PRESENT: full ROM. ABSENT: calf tenderness, clubbing, pedal edema Neurological exam: PRESENT: alert, awake, oriented to person, oriented to place, oriented to time, oriented to situation, CN II-XII grossly intact. ABSENT: motor sensory deficit Psychiatric exam: PRESENT: appropriate affect, normal mood. ABSENT: homicidal ideation, suicidal ideation Results Laboratory Results: WBC 5.9 10^3/uL (4.0-10.5) 09/08/20 07:49 RBC 3.68 10^6/uL (3.72-5.28) L 09/08/20 07:49 Hgb 10.1 g/dL (12.0-15.5) L 09/08/20 07:49 Hct 30.1 % (36.0-47.0) L 09/08/20 07:49 MCV 82 fl (80-97) 09/08/20 07:49 MCH 27.3 pg (27.0-33.4) 09/08/20 07:49 MCHC 33.4 g/dL (32.0-36.0) 09/08/20 07:49 RDW 14.2 % (11.5-14.0) H 09/08/20 07:49 Plt Count 278 10^3/uL (150-450) 09/08/20 07:49 Lymph % (Auto) 26.0 % (13-45) 09/08/20 07:49 Grainger % (Auto) 8.1 % (3-13) 09/08/20 07:49 Eos % (Auto) 3.3 % (0-6) 09/08/20 07:49 Baso % (Auto) 1.1 % (0-2) 09/08/20 07:49 Absolute Neuts (auto) 3.6 10^3/uL (1.7-8.2) 09/08/20 07:49 Absolute Lymphs (auto) 1.5 10^3/uL (0.5-4.7) 09/08/20 07:49 Absolute Monos (auto) 0.5 10^3/uL (0.1-1.4) 09/08/20 07:49 Absolute Eos (auto) 0.2 10^3/uL (0.0-0.6) 09/08/20 07:49 Absolute Basos (auto) 0.1 10^3/uL (0.0-0.2) 09/08/20 07:49 Seg Neutrophils % 61.5 % (42-78) 09/08/20 07:49 PT 13.5 SEC (11.4-15.4) 09/04/20 18:45 INR 1.01 09/04/20 18:45 Sodium 137.6 mmol/L (137-145) 09/08/20 07:49 Potassium 3.6 mmol/L (3.6-5.0) 09/08/20 07:49 Chloride 105 mmol/L (98-107) 09/08/20 07:49 Carbon Dioxide 27 mmol/L (22-30) 09/08/20 07:49 Anion Gap 6 (5-19) 09/08/20 07:49 BUN 6 mg/dL (7-20) L 09/08/20 07:49 Creatinine 0.97 mg/dL (0.52-1.25) 09/08/20 07:49 Est GFR ( Amer) > 60 (>60) 09/08/20 07:49 Est GFR (MDRD) Non-Af 56 (>60) L 09/08/20 07:49 Glucose 83 mg/dL (75-110) 09/08/20 07:49 POC Glucose 85 mg/dL (70-110) 09/05/20 11:18 Calcium 8.3 mg/dL (8.4-10.2) L 09/08/20 07:49 Magnesium 1.9 mg/dL (1.6-2.3) 09/08/20 07:49 Total Bilirubin 0.4 mg/dL (0.2-1.3) 09/08/20 07:49 Direct Bilirubin 0.2 mg/dL (0.0-0.4) 09/08/20 07:49 Neonat Total Bilirubin Not Reportable 09/08/20 07:49 Neonat Direct Bilirubin Not Reportable 09/08/20 07:49 Neonat Indirect Bili Not Reportable 09/08/20 07:49 AST 16 U/L (14-36) 09/08/20 07:49 ALT 6 U/L (<35) 09/08/20 07:49 Alkaline Phosphatase 60 U/L (38-126) 09/08/20 07:49 Creatine Kinase 82 U/L (30-135) 09/04/20 18:45 CK-MB (CK-2) 0.66 ng/mL (<4.55) 09/04/20 18:45 Troponin I < 0.012 ng/mL 09/04/20 22:57 Total Protein 5.8 g/dL (6.3-8.2) L 09/08/20 07:49 Albumin 3.1 g/dL (3.5-5.0) L 09/08/20 07:49 Lipase 85.7 U/L (23-300) 09/04/20 18:45 Urine Color YELLOW 09/05/20 20:30 Urine Appearance CLOUDY 09/05/20 20:30 Urine pH 5.0 (5.0-9.0) 09/05/20 20:30 Ur Specific Carbon 1.043 09/05/20 20:30 Urine Protein 30 mg/dL (NEGATIVE) H 09/05/20 20:30 Urine Glucose (UA) NEGATIVE mg/dL (NEGATIVE) 09/05/20 20:30 Urine Ketones 20 mg/dL (NEGATIVE) H 09/05/20 20:30 Urine Blood SMALL (NEGATIVE) H 09/05/20 20:30 Urine Nitrite NEGATIVE (NEGATIVE) 09/05/20 20:30 Urine Bilirubin NEGATIVE (NEGATIVE) 09/05/20 20:30 Urine Urobilinogen NEGATIVE mg/dL (<2.0) 09/05/20 20:30 Ur Leukocyte Esterase LARGE (NEGATIVE) H 09/05/20 20:30 Urine WBC (Auto) 5 /HPF 09/05/20 20:30 Urine RBC (Auto) 2 /HPF 09/05/20 20:30 Urine Bacteria (Auto) 2+ /HPF 09/05/20 20:30 Squamous Epi Cells Auto 4 /HPF 09/05/20 20:30 Urine Mucus (Auto) FEW /LPF 09/05/20 20:30 Urine Yeast (Budding) PRESENT /HPF 09/05/20 20:30 Urine Ascorbic Acid NEGATIVE (NEGATIVE) 09/05/20 20:30 09/04/20 09/04/20 18:45 22:57 CK-MB (CK-2) 0.66 Troponin I < 0.012 < 0.012 Impressions: Abdomen/Pelvis CT 09/04/20 18:35 IMPRESSION: 1. High-grade distal small bowel obstruction. 2. Normal appendix. Nondilated colon. Advanced sigmoid diverticulosis without obvious acute diverticulitis. 3. Multilevel degenerative changes in the lumbar spine. 4. Previous cholecystectomy and hysterectomy. Chest X-Ray 09/04/20 18:37 IMPRESSION: 1. Lungs are mildly hypoinflated with probable minimal basilar atelectasis. Possible pulmonary nodule at the left lung base. This can be evaluated with CT. 2. Some gas-filled bowel in the upper abdomen may reflect dilated small bowel. Patient is scheduled for CT abdomen pelvis. Abdomen X-Ray 09/05/20 00:00 IMPRESSION: Ileus or partial small bowel obstruction. No significant change. KUB X-Ray 09/05/20 03:18 IMPRESSION: NG tube in good position in the stomach. Small Bowel X-Ray 09/06/20 00:00 IMPRESSION: DIFFUSE SMALL BOWEL DILATION WITH CONTRAST PRESENT IN THE COLON AT 4 HOURS. LIKELY DUE TO DIFFUSE ILEUS. Abdomen X-Ray 09/06/20 07:00 IMPRESSION: Gas-filled dilated small bowel loops throughout the abdomen with probable slight increase in dilatation from 1 day prior. Abdomen X-Ray 09/07/20 00:00 IMPRESSION: NO SIGNIFICANT CHANGE IN THE SMALL BOWEL DILATION. Plan Time Spent: Greater than 30 Minutes Stroke Is this a Stroke Patient?: No Acute Heart Failure Is this a Heart Failure Patient?: No
== END 2020-09-09 13:32 | disposition home or self-care (01) ==
LOC: ER 17:28 → EH 09-05 02:58 → INTOOBSV 09-05 02:58 → 5TH 09-05 10:13 → 5 09-05 15:49
PROVIDERS: ADMIT Student in an Organized Health Care Education/Training Program; ATTEND Internal Medicine
DX: K56.600 Partial intestinal obstruction, unspecified as to cause (principal); N17.9 Acute kidney failure, unspecified; E66.9 Obesity, unspecified; Z68.39 Body mass index [BMI] 39.0-39.9, adult; E87.6 Hypokalemia; I10 Essential (primary) hypertension; K57.30 Diverticulosis of large intestine without perforation or abscess without bleeding; R07.89 Other chest pain; N20.0 Calculus of kidney; Z79.899 Other long term (current) drug therapy; Z90.49 Acquired absence of other specified parts of digestive tract; Z90.710 Acquired absence of both cervix and uterus; Z96.653 Presence of artificial knee joint, bilateral
CPT/HCPCS: 93005; 99285; 96361; 96374; 96375; 36415 ×4; 82553; 82962; 82550; 83690; 83735 ×2; 85025 ×4; 85610; 80048; 80053 ×3; 81001; 84484; 74019 ×3; 71045; 74018; 74250; 74177; 93010; G0378 ×6; J1644 ×5; A9270 ×12; J2270; J2405 ×2; J3480; J7030; J7120 ×3; S0028 ×4; J3490